=== PATIENT | female | born 1995 | race Caucasian/White ===

== ENCOUNTER → 2018-07-06 14:46 | Outpatient (CLI) | payer BC, SELFPAY ==
[2018-07-06 15:36] LABS: Basophils % 0.3 % (0.1-2.0); Eosinophils # 0.1 K/mm3 (0.0-0.4); Eosinophils % 0.9 % (0.1-12.0); Hematocrit 39.3 % (37.0-47.0); Hemoglobin 13.3 g/dL (12.2-16.2); Lymphocytes # 1.9 K/mm3 (0.7-4.5); Lymphocytes % 25.3 % (10-50); Mean Corpuscular HGB Conc 33.7 g/dL (31.8-35.4); Mean Corpuscular Hemoglobin 28.6 pg (27.0-31.2); Mean Platelet Volume 7.1 fl (7.4-10.4); Monocytes # 0.4 K/mm3 (0.1-1.0); Monocytes % 5.4 % (1.7-9.3); Neutrophils # 5.2 K/mm3 (1.8-7.8); Platelet Count 279 K/mm3 (142-424); Red Blood Count 4.63 M/mm3 (4.20-5.40); Red Cell Distribution Width 13.2 % (11.5-17.5); White Blood Count 7.7 K/mm3 (4.8-10.8)
[2018-07-09 03:43] LABS: HIV Screen 4th Generation wRfx Non Reactive (Non Reactive); Rapid Plasma Reagin Ab Titer Non Reactive (NonRea<1:1); Rubella Antibodies, IgG 2.59 index (Immune >0.99)
[2018-07-09 03:44] LABS: Hepatitis B Surface Antigen Negative (Negative); Hepatitis C Antibody <0.1 s/co ratio (0.0-0.9)
== END ==
PROVIDERS: Visit Provider Nurse Practitioner Obstetrics & Gynecology
DX: Z34.90 Encounter for supervision of normal pregnancy, unspecified, unspecified trimester (principal)
CPT/HCPCS: 36415; 85025; 86592; 86703; 86762; 86850; 87340; 87380; G0432

== ENCOUNTER → 2018-07-15 10:28 | Outpatient (CLI) | payer BC, SELFPAY ==
--- NOTE | 2018-07-15 10:30 | US_ITS ---
US OB transvaginal HISTORY: ITS.REASON: US OB Dates ORDERING PHYSICIAN: Germán Robles MD PATIENT AGE: 22 years COMPARISON: None FINDINGS: An intrauterine gestational sac is present with a pole with a crown-rump length of 2.46cm correlating to gestational age of 9 weeks 2 days. heart tones are present with an FHR of 186 bpm's. Yolk sac is noted. Adnexa: Unremarkable. IMPRESSION: Live intrauterine gestation at 9 weeks 2 days as described above. Estimated due date by Ultrasound is 02/15/2019
== END ==
PROVIDERS: PCP Nurse Practitioner Obstetrics & Gynecology; Visit Provider Nurse Practitioner Obstetrics & Gynecology
DX: O26.841 Uterine size-date discrepancy, first trimester (principal)
CPT/HCPCS: 76817

== ENCOUNTER 2018-12-03 08:10 | Outpatient (CLI) | payer BC, SELFPAY ==
[2018-12-03 08:23] VITALS: BMI 27.3
[2018-12-03 08:50] LABS: Appearance,Urine CLOUDY (Clear); Bilirubin,Urine Negative (Negative); Blood, Urine Negative (Negative); Color,Urine YELLOW (Yellow); Glucose,Urine (UA) Negative (Negative); Ketones,Urine Negative (Negative); Leukocyte Esterase,Urine 2+ (Negative); Microscopic, Urine URINE MICROSCOPIC (MICROSCOPIC); Nitrate,Urine Negative (Negative); PH,Urine 7.5 (5.0-8.5); Protein,Urine Negative (Negative); Urobilinogen,Urine 0.2 EU/dl (0.2)
[2018-12-03 08:56] LABS: Bacteria,Urine 3+ /lpf; Squamous Epithelial Cell,Urine 20-50 #/hpf (0-5)
[2018-12-03 09:00] LABS: Fetal Membrane Rupture (Rapid) Negative (Negative)
[2018-12-03 09:01] LABS: Amphetamine/Metha Screen,Urine Negative ng/mL (<1000); Barbiturates Screen,Urine Negative ng/mL (<200); Benzodiazepines Screen,Urine Negative ng/mL (<200); Cannabinoid Screen,Urine Positive ng/mL (<50); Cocaine Screen,Urine Negative ng/mL (<300); Methadone Screen,Urine Negative ng/mL (<300); Opiate Screen,Urine Negative ng/mL (<300); Phencyclidine Screen,Urine Negative ng/mL (<25)
[2018-12-03 10:06] VITALS: BP 123/79; PULSE 91; RESP 18; TEMP 36.9; O2SAT 95; BMI 27.3
== END 2018-12-03 09:10 | disposition home or self-care (01) ==
LOC: OBOUT 08:13 → OB 08:15
PROVIDERS: Visit Provider Nurse Practitioner Obstetrics & Gynecology
DX: O21.2 Late vomiting of pregnancy (principal); Z3A.29 29 weeks gestation of pregnancy
CPT/HCPCS: 59025; 80305; 81001; 84112; 87086

== ENCOUNTER 2019-01-11 22:24 | Observation (INO) ==
[2019-01-11 23:48] LABS: Basophils % 0.3 % (0.1-2.0); Eosinophils % 0.3 % (0.1-12.0); Hemoglobin 12.9 g/dL (12.2-16.2); Lymphocytes # 2.3 K/mm3 (0.7-4.5); Lymphocytes % 17.8 % (10-50); Mean Corpuscular HGB Conc 32.2 g/dL (31.8-35.4); Mean Platelet Volume 7.5 fl (7.4-10.4); Monocytes # 0.9 K/mm3 (0.1-1.0); Monocytes % 6.7 % (1.7-9.3); Neutrophils # 9.7 K/mm3 (1.8-7.8); Neutrophils % 74.9 % (37.0-80.0); Platelet Count 427 K/mm3 (142-424); Red Blood Count 4.71 M/mm3 (4.20-5.40); Red Cell Distribution Width 13.6 % (11.5-17.5); White Blood Count 12.9 K/mm3 (4.8-10.8)
[2019-01-12 00:01] LABS: Activated Partial Thrombo Time 25.6 seconds (23.6-34.0); INR 0.96 (0.9-1.1)
[2019-01-12 00:02] LABS: Anion Gap 19.5 mEq/L (5-15); Calcium 9.6 mg/dL (8.5-10.1)
--- NOTE | 2019-01-12 01:00 | History & Physical Report ---
OB - H&P: HPI Antepartum - History of Present Illness Chief complaint: Nausea and vomiting, abdominal pain History of present illness: She is a 23-year-old 5 para 0 aborta 4 who is 35 weeks gestational age. We did an early ultrasound here that confirmed her dates. She subsequently tr ansferred to [facility] and is now transferring back here she says she arrived here in labor and delivery with abdominal pain and nausea and vomiting. She says she has been vomiting for about a month. She does admit to mild headache. On arrival her blood pressure was elevated in the 160/100 range it is now 132/82. She has received a liter of of fluid. Nonstress test is reactive. Her liver function tests are elevated in the 500 range. Her platelets are normal. Her potassium is low at 2.5. She denies hepatitis and she did have hepatitis screening few weeks ago that were negative. He was seen a few weeks ago they felt that she had gallbladder disease. She had been scheduled for a gallbladder ultrasound but did not show up for this. We will make arrangements for this in the morning. - History of Present Criteria for establishing EDC:: LMP confirmed by 1st trimester US care: limited care Ultrasounds: normal 1st trimester US Obstetrical complications: other 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 Para: 0 Review of Systems - Review of Systems Review of systems:: pertinent systems reviewed and negative unless documented below Meds Home Medications Medication Instructions Recorded Confirmed Type Mv-Mn/Iron/FA/Herbal/Digestive 1 tab PO DAILY 01/11/19 01/11/19 History [ One Tablet] Allergies Allergy/AdvReac Type Severity Reaction Status Date / Time Sulfa (Sulfonamide Allergy Unknown Verified 07/06/18 13:36 Antibiotics) [SULFA (SULFONAMIDE ANTIBIOTICS)] OB - H&P: Exam - Physical Exam Vital signs: Temp Pulse Resp BP Pulse Ox 98.5 F 102 H 16 137/96 H 98 01/11/19 23:08 01/11/19 23:08 01/11/19 23:08 01/11/19 23:08 01/11/19 23:08 - Constitutional no acute distress - Routine HEENT Exam Head: Present: normocephalic Eye: Present: EOMI, PERRL ENT: Present: mucous membranes moist - Routine Neck Exam Present: supple, full ROM - Routine Respiratory Exam Absent: accessory muscle use (good air entry bilaterally), respiratory distress, wheezes, crackles - Routine Cardiovascular Exam Present: RRR. Absent: murmur - Routine Abdominal Exam Present: soft, normoactive bowel sounds. Absent: tenderness, distended, guarding - Routine Rectal Exam Patient deferred: visual exam, digital exam - Routine Exam Patient deferred: external exam, groin exam, perineal exam - Routine Extremities Exam Present: full ROM. Absent: cyanosis, edema - Routine Skin Exam Present: intact. Absent: cyanosis - Routine Neurological Exam Present: alert, oriented X3 - Routine Psychiatric Exam Present: normal affect OB - Results - Labs Labs: Short CBC 01/11/19 Range/Units 23:05 WBC 12.9 H (4.8-10.8) K/mm3 Hgb 12.9 (12.2-16.2) g/dL Hct 40.0 (37.0-47.0) % Plt Count 427 H (142-424) K/mm3 BMP 01/11/19 23:05 Sodium 139 Potassium 2.5 L* Chloride 97 L Carbon Dioxide 25 BUN 7 Creatinine 0.79 Glucose 72 L Calcium 9.6 Liver Function 01/11/19 Range/Units 23:05 AST 568 H* (15-37) U/L ALT 415 H* (12-78) U/L OB - A/P Antepartum (1) Gallbladder disease affecting Current visit: Yes Status: Acute (2) False labor before 37 completed weeks of gestation in third trimester Current visit: Yes Status: Acute (3) Elevated liver function tests Current visit: Yes Status: Acute - Additional Plan Planning to breastfeed?: No Plan: other Additional Information:: She has elevated liver enzymes possibly consistent with gallbladder disease. Her platelets are normal. Her blood pressure has normalized now that she is relaxed in bed. We will plan to give her some pain medicine overnight. We will get an ultrasound in the morning. I did an ultrasound at the bedside and fluid was adequate. Baby was active. Heart rate was normal. Her nonstress test is reactive at this point in time. She did have one episode of prolonged decelerations lasted about 3 minutes. This is now improved. We will continue with antiemetics overnight. I will give her some pain medicine as well since she does complain of lower abdominal pain. She has more uterine irritability than contractions. I examined her cervix and she was 2 cm 50% Station -2. We will repeat all her blood work again in the morning.
[2019-01-12 01:08] LABS: Microscopic, Urine URINE MICROSCOPIC (MICROSCOPIC)
[2019-01-12 01:09] LABS: Appearance,Urine CLEAR (Clear); Blood, Urine Negative (Negative); Color,Urine YELLOW (Yellow); Glucose,Urine (UA) Negative (Negative); Ketones,Urine 3+ (Negative); Leukocyte Esterase,Urine 2+ (Negative); PH,Urine 6.5 (5.0-8.5); Protein,Urine Negative (Negative); Urobilinogen,Urine 0.2 EU/dl (0.2)
[2019-01-12 01:15] LABS: Bilirubin,Urine Negative (Negative)
[2019-01-12 01:17] LABS: Amorphous Sediment,Urine 1+ /lpf; Bacteria,Urine 1+ /lpf; Mucus,Urine 1+ /lpf
[2019-01-12 01:18] LABS: Amphetamine/Metha Screen,Urine Negative ng/mL (<1000); Barbiturates Screen,Urine Negative ng/mL (<200); Benzodiazepines Screen,Urine Negative ng/mL (<200); Cannabinoid Screen,Urine Positive ng/mL (<50); Cocaine Screen,Urine Negative ng/mL (<300); Methadone Screen,Urine Negative ng/mL (<300); Opiate Screen,Urine Negative ng/mL (<300); Phencyclidine Screen,Urine Negative ng/mL (<25)
[2019-01-12 08:04] LABS: Basophils % 0.3 % (0.1-2.0); Eosinophils % 0.3 % (0.1-12.0); Hematocrit 31.2 % (37.0-47.0); Lymphocytes # 2.3 K/mm3 (0.7-4.5); Lymphocytes % 22.3 % (10-50); Mean Corpuscular HGB Conc 32.1 g/dL (31.8-35.4); Mean Corpuscular Volume 85.3 fl (81-99); Mean Platelet Volume 7.4 fl (7.4-10.4); Monocytes # 0.7 K/mm3 (0.1-1.0); Monocytes % 7.1 % (1.7-9.3); Neutrophils # 7.1 K/mm3 (1.8-7.8); Platelet Count 313 K/mm3 (142-424); Red Blood Count 3.66 M/mm3 (4.20-5.40); Red Cell Distribution Width 13.7 % (11.5-17.5); White Blood Count 10.1 K/mm3 (4.8-10.8)
[2019-01-12 08:16] LABS: Hemoglobin 10.1 g/dL (12.2-16.2)
[2019-01-12 08:31] LABS: Activated Partial Thrombo Time 26.2 seconds (23.6-34.0); INR 1.04 (0.9-1.1); Prothrombin Time 10.8 seconds (9.4-11.8)
[2019-01-12 08:39] LABS: Albumin Level 2.4 gm/dL (3.4-5.0); Albumin/Globulin Ratio 0.7 (1.1-1.8); Anion Gap 15.2 mEq/L (5-15); Globulin 3.6 gm/dl (1.3-3.2); Uric Acid 6.8 mg/dL (2.6-7.2)
--- NOTE | 2019-01-12 08:55 | Progress Note ---
Internal Medicine - PN: Subj *Date: 01/12/19 *Time: 08:52 Interval history: She is doing a little better this morning. She says that her pain is improved. Her liver function tests have improved. Her electrolytes are normal. Her lipase and amylase are both normal as well. Her platelets have come down from 400-3 13. We have an ultrasound planned for this morning to look at her gallbladder as well as the baby. Her nonstress test is reactive and there are no contractions this morning. Exam Vital signs and Labs for Last 24 Hours: Temp Pulse Resp BP Pulse Ox 97.7 F 72 18 110/59 L 100 01/12/19 08:00 01/12/19 08:00 01/12/19 08:00 01/12/19 08:00 01/12/19 08:00 Laboratory Results - last 24 hr 01/11/19 22:49: Membrane Rupture Negative 01/11/19 23:05: WBC 12.9 H, RBC 4.71, Hgb 12.9, Hct 40.0, MCV 85.0, MCH 27.4, MCHC 32.2, RDW 13.6, Plt Count 427 H, MPV 7.5, Neut % (Auto) 74.9, Lymph % (Auto) 17.8, [place] % (Auto) 6.7, Eos % (Auto) 0.3, Baso % (Auto) 0.3, Neut # (Auto) 9.7 H, Lymph # (Auto) 2.3, [place] # (Auto) 0.9, Eos # (Auto) 0.0, Baso # (Auto) 0.0 01/11/19 23:05: PT 10.0, INR 0.96, APTT 25.6, Fibrinogen 500, D-Dimer 1120 H* 01/11/19 23:05: Sodium 139, Potassium 2.5 L*, Chloride 97 L, Carbon Dioxide 25, Anion Gap 19.5 H, BUN 7, Creatinine 0.79, Estimated Creat Clear 110, Estimated GFR 90, Est GFR ( Amer) 109, Glucose 72 L, Uric Acid 7.0, Calcium 9.6, AST 568 H*, ALT 415 H* 01/12/19 00:00: Magnesium 1.6 01/12/19 00:59: Urine Color Yellow, Urine Appearance Clear, Urine pH 6.5, Ur Specific [place] 1.010, Urine Protein Negative, Urine Glucose (UA) Negative, Urine Ketones 3+, Urine Blood Negative, Urine Nitrate Negative, Urine Bilirubin Negative, Urine Urobilinogen 0.2, Ur Leukocyte Esterase 2+ A, Urine RBC 3-5, Urine WBC 10-20, Ur Squamous Epith Cells 5-10, Amorphous Sediment 1+, Urine Bacteria 1+, Urine Mucus 1+ 01/12/19 00:59: Urine Opiates Screen Negative, Urine Methadone Screen Negative, Ur Barbituates Screen Negative, Ur Phencyclidine Scrn Negative, Ur Amphetamines Screen Negative, U Benzodiazepines Scrn Negative, Urine Cocaine Screen Negative, U Marijuana (THC) Screen Positive H 01/12/19 06:18: PT 10.8, INR 1.04, APTT 26.2, D-Dimer 1100 H* 01/12/19 06:18: Sodium 142, Potassium 3.2 L D, Chloride 105, Carbon Dioxide 25, Anion Gap 15.2 H, BUN 6 L, Creatinine 0.71, Estimated Creat Clear 123, Estimated GFR 102, Est GFR ( Amer) 123, Glucose 75, Uric Acid 6.8, Calcium 8.0 L D, Total Bilirubin 1.0, AST 381 H* D, ALT 294 H D, Alkaline Phosphatase 154 H, Total Protein 6.0 L, Albumin 2.4 L, Globulin 3.6 H, Albumin/Globulin Ratio 0.7 L , Amylase 41, Lipase 82 01/12/19 06:18: WBC 10.1, RBC 3.66 L, Hgb 10.1 L D, Hct 31.2 L, MCV 85.3, MCH 27.4, MCHC 32.1, RDW 13.7, Plt Count 313 D, MPV 7.4, Neut % (Auto) 70.0, Lymph % (Auto) 22.3, [place] % (Auto) 7.1, Eos % (Auto) 0.3, Baso % (Auto) 0.3, Neut # (Auto) 7.1, Lymph # (Auto) 2.3, [place] # (Auto) 0.7, Eos # (Auto) 0.0, Baso # (Auto) 0.0 I & O for Last 24 hours: Intake & Output 01/09/19 01/10/19 01/11/19 01/12/19 11:59 11:59 11:59 11:59 Weight 139 lb - Constitutional no acute distress Assessment and Plan (1) Gallbladder disease affecting Current visit: Yes Status: Acute Category: Medical Code(s): O26.619 - Liver and biliary tract disorders in , unspecified trimester; K82.9 - Disease of gallbladder, unspecified (2) False labor before 37 completed weeks of gestation in third trimester Current visit: Yes Status: Acute Category: Medical Code(s): O47.03 - False labor before 37 completed weeks of gestation, third trimester (3) Elevated liver function tests Current visit: Yes Status: Acute Category: Medical Code(s): R94.5 - Abnormal results of liver function studies (4) Hypokalemia Current visit: Yes Status: Acute Category: Medical Code(s): E87.6 - Hypokalemia (5) Hyperemesis gravidarum Current visit: Yes Status: Acute Category: Medical Code(s): O21.0 - Mild hyperemesis gravidarum (6) Dehydration Current visit: Yes Status: Acute Category: Medical Code(s): E86.0 - Dehydration - Assessment and plan all Dx Assessment and Plan for all problems:: We have an ultrasound scheduled for her this morning. We will continue with close observation. We will plan to continue with her potassium for now since she was hypokalemic. We will have her see 1 of our surgeons after we get the results of her ultrasound. We will likely plan to keep her at least until tomorrow to stabilize.
[2019-01-13 06:23] LABS: Hepatitis B Surface Antigen Negative (Negative)
[2019-01-13 08:11] VITALS: BP 109/72
[2019-01-13 08:31] LABS: Basophils % 0.3 % (0.1-2.0); Eosinophils # 0.1 K/mm3 (0.0-0.4); Eosinophils % 2.1 % (0.1-12.0); Hematocrit 28.4 % (37.0-47.0); Lymphocytes # 2.2 K/mm3 (0.7-4.5); Lymphocytes % 33.5 % (10-50); Mean Corpuscular HGB Conc 31.8 g/dL (31.8-35.4); Mean Platelet Volume 8.3 fl (7.4-10.4); Monocytes # 0.5 K/mm3 (0.1-1.0); Monocytes % 7.9 % (1.7-9.3); Neutrophils # 3.7 K/mm3 (1.8-7.8); Neutrophils % 56.2 % (37.0-80.0); Platelet Count 260 K/mm3 (142-424); Red Blood Count 3.26 M/mm3 (4.20-5.40); Red Cell Distribution Width 14.1 % (11.5-17.5); White Blood Count 6.6 K/mm3 (4.8-10.8)
[2019-01-13 08:49] LABS: Albumin Level 1.9 gm/dL (3.4-5.0); Albumin/Globulin Ratio 0.5 (1.1-1.8); Anion Gap 13.1 mEq/L (5-15); Bilirubin,Total 0.5 mg/dL (0.2-1.0); Calcium 7.4 mg/dL (8.5-10.1); Globulin 3.6 gm/dl (1.3-3.2); Total Protein,Serum 5.5 gm/dL (6.4-8.2)
--- NOTE | 2019-01-13 09:21 | Progress Note ---
Internal Medicine - PN: Subj *Date: 01/13/19 *Time: :19 Interval history: She is doing better today. She has been eating and drinking and ambulating. She has had some nausea but no episodes of emesis. She said she felt a little nauseous after her last meal. We have been giving her Zofran. Blood work yesterday had improved. I have repeated her blood work again this morning. We will also try some Vistaril to see if this helps with her sleeping and anxiety. We will start her on some oral pain medicine for her cholecystitis. We will plan to send her home today. Exam Vital signs and Labs for Last 24 Hours: Temp Pulse Resp BP Pulse Ox 97.9 F 78 18 109/72 L 100 01/13/19 08:00 01/13/19 08:00 01/13/19 08:00 01/13/19 08:00 01/13/19 08:00 Laboratory Results - last 24 hr 01/12/19 06:18: Hep Bs Antigen Negative 01/13/19 08:25: WBC 6.6 D, RBC 3.26 L, Hgb 9.0 L, Hct 28.4 L, MCV 87.0, MCH 27. 6, MCHC 31.8, RDW 14.1, Plt Count 260, MPV 8.3, Neut % (Auto) 56.2, Lymph % (Auto) 33.5, [place] % (Auto) 7.9, Eos % (Auto) 2.1, Baso % (Auto) 0.3, Neut # (Auto) 3.7, Lymph # (Auto) 2.2, [place] # (Auto) 0.5, Eos # (Auto) 0.1, Baso # (Auto) 0.0 01/13/19 08:25: Sodium 143, Potassium 3.1 L, Chloride 111 H, Carbon Dioxide 22, Anion Gap 13.1, BUN 2 L D, Creatinine 0.64, Estimated Creat Clear 136, Estimated GFR 115, Est GFR ( Amer) 139, Glucose 81, Calcium 7.4 L, Total Bilirubin 0.5, AST 237 H D, ALT 221 H, Alkaline Phosphatase 132 H, Total Protein 5.5 L, Albumin 1.9 L D, Globulin 3.6 H, Albumin/Globulin Ratio 0.5 L I & O for Last 24 hours: Intake & Output 01/10/19 01/11/19 01/12/19 01/13/19 11:59 11:59 11:59 11:59 Weight 139 lb Microbiology Reports for the Last 24 Hours: Microbiology 01/12/19 00:59 Urine,Clean Catch Urine Culture - Final Multiple organisms, suggests contamination. - Constitutional no acute distress Assessment and Plan (1) Gallbladder disease affecting Current visit: Yes Status: Acute Category: Medical Code(s): O26.619 - Liver and biliary tract disorders in , unspecified trimester; K82.9 - Disease of gallbladder, unspecified (2) False labor before 37 completed weeks of gestation in third trimester Current visit: Yes Status: Acute Category: Medical Code(s): O47.03 - False labor before 37 completed weeks of gestation, third trimester (3) Elevated liver function tests Current visit: Yes Status: Acute Category: Medical Code(s): R94.5 - Abnormal results of liver function studies (4) Hypokalemia Current visit: Yes Status: Acute Category: Medical Code(s): E87.6 - Hypokalemia (5) Hyperemesis gravidarum Current visit: Yes Status: Acute Category: Medical Code(s): O21.0 - Mild hyperemesis gravidarum (6) Dehydration Current visit: Yes Status: Acute Category: Medical Code(s): E86.0 - Dehydration - Assessment and plan all Dx Assessment and Plan for all problems:: She is doing better today. She is taking some pain medicine overnight. We will change her to an oral pain medicine. We will repeat her blood work this morning and we are awaiting these results. We will plan to send her home today to follow-up with me next week.
--- NOTE | 2019-01-13 09:43 | Discharge Summary ---
General - General Admission date:: 01/12/19 Discharge date: 01/13/19 HPI HPI: She is a 23-year-old 5 aborta 4 who was 35 weeks gestational age. She says she has been having care in [facility]. They did not seem to have any records for her except for a triage visit when she was seen about 4 weeks ago for gallbladder pain. She came into the hospital here with severe abdominal pain and occasional contractions. She was dehydrated and hypokalemic. She had been nauseated and had been vomiting profusely she says for about a month. As result of this we elected to admit her for further care. Hospital Course Hospital Course: She was started on IV fluids and we have given her IV Stadol for pain. This seems to have helped. She had an ultrasound that showed a normal size fetus with good biophysical profile and fluid. The growth was average. She had an ultrasound of her gallbladder that showed multiple gallstones as well as sludge in the gallbladder. The gallbladder wall was slightly thickened as well. She initially had elevated liver function tests and these have now gone down. Her white blood cell count was initially 12 and is now 6. Her bilirubin has been normal. Her amylase and lipase were normal as well. We will plan to send her home today with Vistaril and Tylenol 3 for pain. The Vistaril is for sleep. We will also give her a prescription for Zofran to take 4 mg every 4 hours as needed for nausea and vomiting. We will follow-up with her again in a few days in my office. Her cervix on admission was 2 cm 50% Station -3. We will plan to deliver her by 39 weeks. We will have her see a general surgeon for a cholecystectomy after delivery. Her condition on discharge is stable and improved. We have instructed her about the type of food she should eating. I told her she should be eating fat-free foods. Her pain is improved with the IV pain medicine. Her hypokalemia has improved as well. She is no longer vomiting. Rhogam Administration: Not Indicated Objective Vital signs: Temp Pulse Resp BP Pulse Ox 97.9 F 78 18 109/72 L 100 01/13/19 08:00 01/13/19 08:00 01/13/19 08:00 01/13/19 08:00 01/13/19 08:00 no acute distress Results Labs on day of discharge: Labs from last 24 hours 01/13/19 01/13/19 01/12/19 08:25 08:25 06:18 WBC 6.6 D RBC 3.26 L Hgb 9.0 L Hct 28.4 L MCV 87.0 MCH 27.6 MCHC 31.8 RDW 14.1 Plt Count 260 MPV 8.3 Neut % (Auto) 56.2 Lymph % (Auto) 33.5 [place] % (Auto) 7.9 Eos % (Auto) 2.1 Baso % (Auto) 0.3 Neut # (Auto) 3.7 Lymph # (Auto) 2.2 [place] # (Auto) 0.5 Eos # (Auto) 0.1 Baso # (Auto) 0.0 Sodium 143 Potassium 3.1 L Chloride 111 H Carbon Dioxide 22 Anion Gap 13.1 BUN 2 L D Creatinine 0.64 Estimated Creat Clear 136 Estimated GFR 115 Est GFR ( Amer) 139 Glucose 81 Calcium 7.4 L Total Bilirubin 0.5 AST 237 H D ALT 221 H Alkaline Phosphatase 132 H Total Protein 5.5 L Albumin 1.9 L D Globulin 3.6 H Albumin/Globulin Ratio 0.5 L Hep Bs Antigen Negative DS: Diagnosis - Discharge Diagnosis (1) Gallbladder disease affecting Status: Acute (2) False labor before 37 completed weeks of gestation in third trimester Status: Acute (3) Elevated liver function tests Status: Acute (4) Hypokalemia Status: Acute (5) Hyperemesis gravidarum Status: Acute (6) Dehydration Status: Acute (7) Gallstones and inflammation of gallbladder without obstruction Status: Acute (8) Right upper quadrant pain Status: Acute Discharge Plan - Patient Discharge Instructions ACTIVITY: No heavy lifting DIET: low fat, low cholesterol - Follow up Plan Disposition: Home, Self-Correction Medications: Home Medications Medication Instructions Recorded Confirmed Type Mv-Mn/Iron/FA/Herbal/Digestive 1 tab PO DAILY 01/11/19 01/11/19 History [ One Tablet] Acetaminophen with Codeine 1 - 2 tab PO Q4HP PRN #30 tab 01/13/19 Rx [Tylenol with Codeine #3 tablet] Ondansetron [Zofran 4mg ODT] 4 mg PO Q4HP PRN #30 tab.rapdis 01/13/19 Rx hydrOXYzine pamoate [Vistaril 25mg 25 mg PO Q6H PRN #60 cap 01/13/19 Rx capsule] Prescriptions/Medication Reconciliation: New hydrOXYzine pamoate [Vistaril 25mg capsule] 25 mg PO Q6H PRN #60 cap PRN Reason: Sleep Ondansetron [Zofran 4mg ODT] 4 mg PO Q4HP PRN #30 tab.rapdis PRN Reason: Nausea And Vomiting Acetaminophen with Codeine [Tylenol with Codeine #3 tablet] 1 - 2 tab PO Q4HP PRN #30 tab PRN Reason: Moderate To Severe Pain Continued Mv-Mn/Iron/FA/Herbal/Digestive [ One Tablet] 1 tab PO DAILY - Problem Reconciliation Problems Reviewed?: Yes
[2019-01-13 16:53] LABS: Rapid Plasma Reagin Ab Titer Non Reactive (NonRea<1:1)
[2019-01-13 16:54] LABS: HIV Screen 4th Generation wRfx Non Reactive (Non Reactive)
== END 2019-01-13 12:24 | disposition home or self-care (01) ==
LOC: OBOUT 22:24 → OB 22:28 → INTOOBSV 01-12 00:19 → OB 01-12 00:19
PROVIDERS: ADMIT Nurse Practitioner Obstetrics & Gynecology; ATTEND Nurse Practitioner Obstetrics & Gynecology
CPT/HCPCS: 36415; 59025; 76705; 76819; 80048; 80053; 80305; 81001; 82150; 83690; 83735; 84112; 84450; 84460; 84550; 85025; 85378; 85384; 85610; 85730; 86592; 86762; 87086; 87340; 96360; G0378; J0595; J2405

== ENCOUNTER → 2019-01-19 17:19 | Outpatient (CLI) | payer BC, SELFPAY | PROVIDERS: Visit Provider Nurse Practitioner Obstetrics & Gynecology | DX: Z34.90 Encounter for supervision of normal pregnancy, unspecified, unspecified trimester (principal) | CPT/HCPCS: 86403 ==

== ENCOUNTER 2019-01-19 21:03 | Outpatient (CLI) | payer BC, SELFPAY ==
[2019-01-19 21:16] VITALS: BP 131/80; PULSE 72; RESP 18; TEMP 36.8; O2SAT 98; BMI 27.7
[2019-01-19 21:33] LABS: Microscopic, Urine URINE MICROSCOPIC (MICROSCOPIC)
[2019-01-19 21:38] LABS: Appearance,Urine CLEAR (Clear); Blood, Urine Negative (Negative); Color,Urine YELLOW (Yellow); Glucose,Urine (UA) Negative (Negative); Ketones,Urine Negative (Negative); Leukocyte Esterase,Urine 2+ (Negative); Nitrate,Urine Negative (Negative); PH,Urine 7.5 (5.0-8.5); Protein,Urine TRACE (Negative); Specific Gravity, Urine 1.015 (1.005-1.030); Urobilinogen,Urine 0.2 EU/dl (0.2)
[2019-01-19 21:42] LABS: Bilirubin,Urine Negative (Negative)
[2019-01-19 21:53] LABS: Amorphous Sediment,Urine 1+ /lpf; Amphetamine/Metha Screen,Urine Negative ng/mL (<1000); Bacteria,Urine 2+ /lpf; Barbiturates Screen,Urine Negative ng/mL (<200); Benzodiazepines Screen,Urine Negative ng/mL (<200); Cannabinoid Screen,Urine Positive ng/mL (<50); Cocaine Screen,Urine Negative ng/mL (<300); Methadone Screen,Urine Negative ng/mL (<300); Mucus,Urine 1+ /lpf; Opiate Screen,Urine Positive ng/mL (<300); Phencyclidine Screen,Urine Negative ng/mL (<25)
--- NOTE | 2019-01-20 00:06 | PC.NURSE ---
Discharge paper work signed. Pt. waiting for ride to arrive.
--- NOTE | 2019-01-20 03:42 | PC.NURSE ---
Pt. left unit at this time as ride has arrived.
== END 2019-01-20 03:40 | disposition home or self-care (01) ==
LOC: OBOUT 21:06 → OB 21:06
PROVIDERS: PCP Nurse Practitioner Obstetrics & Gynecology; Visit Provider Obstetrics & Gynecology
DX: O47.03 False labor before 37 completed weeks of gestation, third trimester (principal); Z3A.36 36 weeks gestation of pregnancy
CPT/HCPCS: 59025; 80305; 81001; 87086; 96360; 96372

== ENCOUNTER 2019-01-25 22:32 | Outpatient (CLI) | payer BC, SELFPAY ==
[2019-01-25 22:47] VITALS: BP 122/70; PULSE 114; RESP 16; TEMP 37.1; O2SAT 96; BMI 26.7
[2019-01-25 23:11] LABS: Microscopic, Urine URINE MICROSCOPIC (MICROSCOPIC)
[2019-01-25 23:20] LABS: Appearance,Urine CLEAR (Clear); Blood, Urine Negative (Negative); Color,Urine YELLOW (Yellow); Glucose,Urine (UA) Negative (Negative); Ketones,Urine Negative (Negative); Leukocyte Esterase,Urine 3+ (Negative); Nitrate,Urine Negative (Negative); Protein,Urine TRACE (Negative)
[2019-01-25 23:25] LABS: Bilirubin,Urine Negative (Negative)
[2019-01-25 23:27] LABS: Amphetamine/Metha Screen,Urine Negative ng/mL (<1000); Barbiturates Screen,Urine Negative ng/mL (<200); Benzodiazepines Screen,Urine Negative ng/mL (<200); Cannabinoid Screen,Urine Positive ng/mL (<50); Cocaine Screen,Urine Negative ng/mL (<300); Methadone Screen,Urine Negative ng/mL (<300); Opiate Screen,Urine Positive ng/mL (<300); Phencyclidine Screen,Urine Negative ng/mL (<25)
[2019-01-25 23:38] LABS: Bacteria,Urine Trace /lpf
== END 2019-01-26 07:14 | disposition home or self-care (01) ==
LOC: OBOUT 22:36 → OB 22:37
PROVIDERS: PCP Nurse Practitioner Obstetrics & Gynecology; Visit Provider Obstetrics & Gynecology
DX: O60.03 Preterm labor without delivery, third trimester (principal); Z3A.37 37 weeks gestation of pregnancy
CPT/HCPCS: 59025; 80305; 81001; 87086

== ENCOUNTER 2019-01-31 05:14 | Inpatient (IN) ==
[2019-01-31 06:13] LABS: Microscopic, Urine URINE MICROSCOPIC (MICROSCOPIC)
[2019-01-31 06:19] LABS: Appearance,Urine CLEAR (Clear); Bilirubin,Urine Negative (Negative); Blood, Urine Negative (Negative); Color,Urine YELLOW (Yellow); Glucose,Urine (UA) Negative (Negative); Ketones,Urine Negative (Negative); Leukocyte Esterase,Urine 2+ (Negative); Protein,Urine Negative (Negative); Urobilinogen,Urine 0.2 EU/dl (0.2)
[2019-01-31 06:25] LABS: Basophils % 0.4 % (0.1-2.0); Eosinophils # 0.2 K/mm3 (0.0-0.4); Eosinophils % 1.8 % (0.1-12.0); Hematocrit 32.5 % (37.0-47.0); Hemoglobin 10.1 g/dL (12.2-16.2); Lymphocytes # 3.2 K/mm3 (0.7-4.5); Lymphocytes % 30.5 % (10-50); Mean Corpuscular Volume 84.5 fl (81-99); Mean Platelet Volume 8.2 fl (7.4-10.4); Monocytes # 0.6 K/mm3 (0.1-1.0); Neutrophils # 6.5 K/mm3 (1.8-7.8); Neutrophils % 61.4 % (37.0-80.0); Platelet Count 310 K/mm3 (142-424); Red Blood Count 3.84 M/mm3 (4.20-5.40); White Blood Count 10.5 K/mm3 (4.8-10.8)
[2019-01-31 06:36] LABS: Bacteria,Urine Trace /lpf
[2019-01-31 06:38] LABS: Amphetamine/Metha Screen,Urine Negative ng/mL (<1000); Barbiturates Screen,Urine Negative ng/mL (<200); Benzodiazepines Screen,Urine Negative ng/mL (<200); Cannabinoid Screen,Urine Positive ng/mL (<50); Cocaine Screen,Urine Negative ng/mL (<300); Methadone Screen,Urine Negative ng/mL (<300); Opiate Screen,Urine Positive ng/mL (<300); Phencyclidine Screen,Urine Negative ng/mL (<25)
--- NOTE | 2019-01-31 08:24 | History & Physical Report ---
OB - H&P: HPI Antepartum - History of Present Illness Chief complaint: Severe gallbladder disease and abdominal pain, nausea and vomiting History of present illness: She is a 23-year-old 4 para 0 aborta 3 who is 37+6 weeks gestational age. She has had a history of gallbladder disease throughout the and has had severe pain. She has been taking narcotics for her pain. As result of this we have elected to induce her labor at term. - History of Present Criteria for establishing EDC:: LMP confirmed by 2nd trimester US care: limited care Ultrasounds: normal mid trimester US Obstetrical complications: none Medical complications: other Narrative: She has severe right upper quadrant pain, nausea vomiting. She is been admitted for dehydration. An ultrasound confirmed that she had multiple gallstones within her gallbladder. She has been taking narcotics recently for the pain - Labs Blood type: O (+) positive Rubella: immune RPR/VDRL: nonreactive GBS status: negative HBsAG: negative [facility] History I have reviewed the patient's past medical history: Yes *Have you ever received a pneumonia vaccine?: No *Have you received a flu vaccine this season?: No Laterality Cases: Other Surgeries: Yes: Other. 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 Para: 0 Review of Systems - Review of Systems Review of systems:: pertinent systems reviewed and negative unless documented below Meds Home Medications Medication Instructions Recorded Confirmed Type Mv-Mn/Iron/FA/Herbal/Digestive 1 tab PO DAILY 01/11/19 01/31/19 History [ One Tablet] Acetaminophen with Codeine 1 - 2 tab PO Q4HP PRN #30 tab 01/13/19 01/31/19 Rx [Tylenol with Codeine #3 tablet] Ondansetron [Zofran 4mg ODT] 4 mg PO Q4HP PRN #30 tab.rapdis 01/13/19 01/31/19 Rx hydrOXYzine pamoate [Vistaril 25mg 25 mg PO Q6H PRN #60 cap 01/13/19 01/31/19 Rx capsule] promethazine 12.5 mg rectal 12.5 mg VA Q4-6H PRN #12 each 01/26/19 01/31/19 Rx suppository cephALEXin [Cephalexin 500mg Tab] 500 mg PO BID 01/31/19 01/31/19 History Allergies Allergy/AdvReac Type Severity Reaction Status Date / Time Sulfa (Sulfonamide Allergy Unknown Fever Verified 01/30/19 10:27 Antibiotics) [SULFA (SULFONAMIDE ANTIBIOTICS)] OB - H&P: Exam - Physical Exam Vital signs: Pulse Resp BP Pulse Ox 88 18 139/95 H 98 01/31/19 05:18 01/31/19 05:18 01/31/19 05:18 01/31/19 05:18 - Constitutional no acute distress - Routine HEENT Exam Head: Present: normocephalic Eye: Present: EOMI, PERRL ENT: Present: mucous membranes moist - Routine Neck Exam Present: supple, full ROM - Routine Respiratory Exam Absent: accessory muscle use (good air entry bilaterally), respiratory distress, wheezes, crackles - Routine Cardiovascular Exam Present: RRR. Absent: murmur - Routine Abdominal Exam Present: soft, normoactive bowel sounds. Absent: tenderness, distended, guarding - Routine Rectal Exam Patient deferred: visual exam, digital exam - Routine Exam Patient deferred: external exam, groin exam, perineal exam - Routine Extremities Exam Present: full ROM. Absent: cyanosis, edema - Routine Skin Exam Present: intact. Absent: cyanosis - Routine Neurological Exam Present: alert, oriented X3 - Routine Psychiatric Exam Present: normal affect OB - Results - Labs Labs: Short CBC 01/31/19 Range/Units 05:40 WBC 10.5 (4.8-10.8) K/mm3 Hgb 10.1 L (12.2-16.2) g/dL Hct 32.5 L (37.0-47.0) % Plt Count 310 (142-424) K/mm3 Urine 01/31/19 Range/Units 05:24 Urine Color Yellow (Yellow) Urine Appearance Clear (Clear) Urine pH 8.0 (5.0-8.5) Ur Specific [place] 1.010 (1.005-1.030) Urine Protein Negative (Negative) Urine Glucose (UA) Negative (Negative) OB - A/P Antepartum (1) Gallbladder disease affecting Current visit: No Status: Acute (2) Current visit: No Status: Acute - Additional Plan Planning to breastfeed?: No Plan: induction Additional Information:: We are inducing her labor at term since she has severe pain and requires narcotics for the pain.
--- NOTE | 2019-01-31 08:25 | Progress Note ---
Labor Note - Subjective: Date: 01/31/19 Time: 08:24 irregular contractions - Objective: NST:: Reactive Contractions:: every 4-5 minutes Cervical Dilation:: 3 Effacement:: 50% Station: -2 Membranes: artificially ruptured Comment:: Clear fluid - Fetus: Monitoring?: Yes monitoring type:: Internal and External Comment:: I inserted an IUPC - Assessment: Patient Problems: All Active Problems Gallbladder disease affecting (Acute) False labor before 37 completed weeks of gestation in third trimester (Acute) Elevated liver function tests (Acute) Hypokalemia (Acute) Hyperemesis gravidarum (Acute) Dehydration (Acute) Gallstones and inflammation of gallbladder without obstruction (Acute) Right upper quadrant pain (Acute) (Acute) - Plan: Anesthesia for epidural?: No Continue to labor down?: Yes Plan for ?: No Continue to monitor?: Yes Start pushing?: No
--- NOTE | 2019-01-31 09:29 | Progress Note ---
[facility] Anesthesia Checklist - Patient Identification Patient Identification: Arm Band, Verbal (Name & ) - Structural Data Admitted From: Inpatient Planned Operative Procedure/s: labor epidural Consent for Planned Operative Procedure(s) Verified: Yes Verified Documents: History and Physical - NPO Status Verified Time NPO: 00:00 - Additional verifications Patient : No Anesthesia Reactions: No Hx Blood Transfusions: No Blood Transfusion Reaction: No Cephalosporin Allergy: No Previous Colonoscopy: No - Cardiovascular Assessment Heart Sounds: S1 & S2 Pulse Strength: Baseline Pulse Rhythm: Regular Peripheral Edema: No - Airway Assessment C-Spine Mobility Assessed: Yes TMJ Mobility Assessed: Yes Dentition: Good Dentition - Neurological Assessment Level of Consciousness: Awake, Alert, Appropriate Hx Seizures: No Numbness or tingling in extremities: No - Anesthesia Plan Anesthesia Risk discussed: Yes Anesthesia Plan: Verified ASA Class: II Anesthesia Type: Epidural [facility] History I have reviewed the patient's past medical history: Yes *Have you ever received a pneumonia vaccine?: No *Have you received a flu vaccine this season?: No Anesthesia experience/problems:: none Laterality Cases: Other Surgeries: Yes: Other. 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
--- NOTE | 2019-01-31 11:00 | Progress Note ---
Labor Note - Subjective: Date: 01/31/19 Time: 11:00 regular contraction - Objective: NST:: Reactive Contractions:: every 2-3 minutes Cervical Dilation:: 4 Effacement:: 90% Station: -2 Membranes: artificially ruptured - Fetus: Monitoring?: Yes monitoring type:: Internal and External - Assessment: Labor progressing?: Yes Cephalopelvic disproportion?: No Patient Problems: All Active Problems Gallbladder disease affecting (Acute) False labor before 37 completed weeks of gestation in third trimester (Acute) Elevated liver function tests (Acute) Hypokalemia (Acute) Hyperemesis gravidarum (Acute) Dehydration (Acute) Gallstones and inflammation of gallbladder without obstruction (Acute) Right upper quadrant pain (Acute) (Acute) - Plan: Anesthesia for epidural?: Yes Continue to labor down?: Yes Plan for ?: No Continue to monitor?: Yes Start pushing?: No
--- NOTE | 2019-01-31 13:49 | Progress Note ---
Labor Note - Subjective: Date: 01/31/19 Time: 13:49 regular contraction - Objective: NST:: Reactive Contractions:: every 2-3 minutes Cervical Dilation:: 7-8 Effacement:: 100% Station: 0 Membranes: artificially ruptured - Fetus: Monitoring?: Yes monitoring type:: Internal - Assessment: Labor progressing?: Yes Cephalopelvic disproportion?: No Patient Problems: All Active Problems Gallbladder disease affecting (Acute) False labor before 37 completed weeks of gestation in third trimester (Acute) Elevated liver function tests (Acute) Hypokalemia (Acute) Hyperemesis gravidarum (Acute) Dehydration (Acute) Gallstones and inflammation of gallbladder without obstruction (Acute) Right upper quadrant pain (Acute) (Acute) - Plan: Anesthesia for epidural?: Yes Continue to labor down?: Yes Plan for ?: No Continue to monitor?: Yes Start pushing?: No
--- NOTE | 2019-01-31 14:42 | Procedure Note ---
- Delivery Note Delivery Date:: 01/31/19 Delivery Time:: 14:26 Anesthesia Type: Epidural Was labor medically induced?: Yes Induction method: per pitocin protocol Gestational age (weeks): 37 delivered prior to 39 weeks?: Yes Justification for early elective delivery:: Liver Disorder Infant Gender: Male at 1 minute: 8 at 5 minutes: 9 LAC or MLE?: LAC Delivery Procedure:: She is a 23-year-old 4 para 0 aborta 3 who was 37 and 6 weeks gestational age. She had severe gallbladder problems and was admitted earlier in the with elevated liver enzymes and severe pain, nausea vomiting and dehydration. Since then she has done a little better but continues to have severe right upper quadrant pain consistent with the gallstones that were diagnosed with ultrasound. As result of this we elected to induce her labor at term. She was started on IV oxytocin had her membranes ruptured. Under labor epidural she progressed to full dilation and delivered spontaneously a liveborn male child at 2:26 PM in the afternoon of January 31, 2019. On deliver the head it was noted that there was a nuchal cord. I elected to just deliver the rest of the infant's body atraumatically and then reduce the cord. The baby cried spontaneously and the oropharynx and nasopharynx were bulb suction. We allowed the cord to continue to pulsate for approximately 1 minute. The cord was then doubly clamped and cut. The was then placed on the mother's abdomen for further care. The nurses assigned Apgars of 8 at 1 minute and 9 at 5 minutes. We then obtained cord blood as well as cord pH. Using gentle traction on the cord and countertraction the fundus I was able to easily deliver the placenta intact. It had a normal three-vessel cord. She had a second-degree perineal laceration was repaired in the usual fashion with 3-0 Vicryl Rapide suture to the superficial tissues and 2-0 Vicryl suture to the deep tissues. She has O+ blood, she is rubella immune and was group B strep coccus negative. She plans to bottlefeed. Her estimate of blood loss was approximately 400 cc. Laceration:: vaginal Placental Delivery Description: Spontaneous
[2019-02-01 07:08] LABS: Hematocrit 31.3 % (37.0-47.0); Hemoglobin 9.5 g/dL (12.2-16.2)
--- NOTE | 2019-02-01 08:12 | Progress Note ---
Internal Medicine - PN: Subj *Date: 02/01/19 *Time: 08:11 Interval history: She continues to do well this morning. She is eating and drinking and ambulating. She is bottlefeeding. Her lochia is normal. Exam Vital signs and Labs for Last 24 Hours: Pulse Resp BP Pulse Ox 88 18 139/95 H 98 01/31/19 05:18 01/31/19 05:18 01/31/19 05:18 01/31/19 05:18 Laboratory Results - last 24 hr 01/31/19 14:37: Cord ABG pH 7.26 L 02/01/19 05:50: Hgb 9.5 L, Hct 31.3 L I & O for Last 24 hours: Intake & Output 01/29/19 01/30/19 01/31/19 02/01/19 11:59 11:59 11:59 11:59 Weight 142 lb Microbiology Reports for the Last 24 Hours: Microbiology 01/31/19 05:24 Urine,Clean Catch Urine Culture - Preliminary NO GROWTH AFTER 24 HOURS - Constitutional no acute distress Assessment and Plan (1) Gallbladder disease affecting Current visit: No Status: Acute Qualifiers: Trimester: third trimester Qualified Code(s): O26.613 - Liver and biliary tract disorders in , third trimester; K82.9 - Disease of gallbladder, unspecified Category: Medical Code(s): O26.619 - Liver and biliary tract disorders in , unspecified trimester; K82.9 - Disease of gallbladder, unspecified (2) Current visit: No Status: Acute Qualifiers: Weeks of gestation: 38 weeks Qualified Code(s): Z3A.38 - 38 weeks gestation of Category: Medical Code(s): Z34.90 - Encounter for supervision of normal , unspecified, unspecified trimester - Assessment and plan all Dx Assessment and Plan for all problems:: She continues to do very well. We will plan to send her home tomorrow.
--- OUTSIDE RECORDS SUMMARY | 2019-02-01 13:43 | External Medical Summary | Continuity of Care Document ---
:1995 Author Organization [facility] Address [address] [facility] [address] [place] [address] Phone Care Team Providers Name Role Phone Germán Robles Primary Care Provider Germán Robles Attending Provider [facility] Attending Provider La Cuenca Primary Care Provider La Cuenca Attending Provider Provider, Referral Primary Care Provider Unavailable Allergies, Adverse Reactions, Alerts Allergen Type Severity Reaction Last Updated Verified Status Sulfa (Sulfonamide Allergy Unknown Fever January 30, 2019 Yes Active Antibiotics) Medications Medication Status Dose Units Route Sig Qty Days Start Date End Ins tructions Date Promethazine Active 12.5 MG Rectal EVERY 04 February Hcl 4-6 2018 HOURS 11:42am Mv-Mn/Iron/Fa/H Active 1 TAB Oral Daily December erbal/Digestive 2018 10:59pm Ondansetron Active 4 MG Oral Every December hours 2018 as 9:48am needed Acetaminophen Active 1 - 2 TAB Oral Every December With Codeine hours 2018 as 9:50am needed Cephalexin Active 500 MG Oral Twice a January day 2018 5:44am Hydroxyzine Active 25 MG Oral Every 29 January Pamoate hours 2018 as 8:50am needed Problems Active Problems Medical Problem Onset Date Status Right upper quadrant pain Active Hyperemesis gravidarum Active False labor before 37 completed weeks of gestation in third Active trimester Elevated liver function tests Active Gallstones and inflammation of gallbladder without obstructi on Active Active Gallbladder disease affecting Active Dehydration Active Hypokalemia Active Procedures Procedure Date Performed Status Urine Culture January 19, 2019 completed Group B Streptococcus Screen (NABIL) January 19, 2019 comp leted Relevant Diagnostic Tests and/or Laboratory Data Laboratory Results Test Date/Time Result Interpretation Reference Result Perfo rming Range Comment Site Urine Color December Yellow 2018 9:31am POC Urine Deandra Positive Marijuana (THC) 2018 9:31am POC Urine October Positive Marijuana (THC) 2018 11:37am Urine Color October Dark 2018 Yellow 11:37am POC Urine October Positive Marijuana (THC) 2018 10:30am Urine Color October Yellow 2018 10:30am Urine Appearance Deandra Clear 2018 9:31am POC Urine Cocaine Deandra Negative 2018 9:31am POC Urine Cocaine October Positive 2018 11:37am Urine Appearance October Turbid 2018 11:37am Urine Appearance October Clear 2018 10:30am POC Urine Cocaine October Negative 2018 10:30am Urine Glucose Deandra Negative (UA) 2018 9:31am POC Urine Deandra Negative Morphine 2018 9:31am Urine Glucose October Negative (UA) 2018 11:37am POC Urine October Positive Morphine 2018 11:37am Urine Glucose October Negative (UA) 2018 10:30am POC Urine October Positive Morphine 2018 10:30am Urine Bilirubin Deandra negative 2018 9:31am POC Urine Deandra Negative Amphetamine 2018 9:31am Urine Bilirubin October moderate 2018 11:37am POC Urine October Negative Amphetamine 2018 11:37am Urine Bilirubin October negative 2018 10:30am POC Urine October Negative Amphetamine 2018 10:30am POC Urine Deandra Negative Methamphetamine 2018 9:31am Urine Ketones Deandra Negative 2018 mg/dL 9:31am Urine Ketones October Small 15 2018 mg/dL 11:37am POC Urine October Negative Methamphetamine 2018 11:37am Urine Ketones October Negative 2018 mg/dL 10:30am POC Urine October Negative Methamphetamine 2018 10:30am POC Urine Deandra Negative Barbiturates 2018 9:31am Urine Specific Deandra 1.010 [place] 2018 9:31am Urine Protein October 100++ 2018 11:37am POC Urine October Negative Barbiturates 2018 11:37am POC Urine October Negative Barbiturates 2018 10:30am Urine Protein October Negative 2018 10:30am POC Urine Deandra Negative Benzodiazepine 2018 9:31am Urine Blood Deandra negative 2018 9:31am POC Urine October Negative Benzodiazepine 2018 11:37am Urine pH October 7.0 2018 11:37am Urine pH October 7.0 2018 10:30am POC Urine October Negative Benzodiazepine 2018 10:30am POC Urine MDMA Deandra Negative 2018 9:31am Urine pH Deandra 8.5 2018 9:31am Urine Blood October negative 2018 11:37am POC Urine MDMA October Negative 2018 11:37am Urine Blood October negative 2018 10:30am POC Urine MDMA October Negative 2018 10:30am Urine Protein Deandra Negative 2018 9:31am POC Urine Deandra Negative Methadone 2018 9:31am Urine Specific October 1.020 [place] 2018 11:37am POC Urine October Negative Methadone 2018 11:37am POC Urine October Negative Methadone 2018 10:30am Urine Specific October 1.015 [place] 2018 10:30am Urine Deandra 0.2 Urobilinogen 2018 Dipstick 9:31am POC Urine Deandra Negative Oxycodone 2018 9:31am Urine October 1 Urobilinogen 2018 Dipstick 11:37am POC Urine October Negative Oxycodone 2018 11:37am Urine October 0.2 Urobilinogen 2018 Dipstick 10:30am POC Urine October Negative Oxycodone 2018 10:30am Urine Nitrate Deandra Negative 2018 9:31am POC Urine Deandra Negative Phencyclidine 2018 9:31am POC Urine October Negative Phencyclidine 2018 11:37am Urine Nitrate October Positive 2018 11:37am Urine Nitrate October Negative 2018 10:30am POC Urine October Negative Phencyclidine 2018 10:30am POC Urine Deandra Negative Buprenorphine 2018 9:31am Urine Leukocyte Deandra Large Esterase 2018 9:31am POC Urine October Negative Buprenorphine 2018 11:37am Urine Leukocyte October Small Esterase 2018 11:37am Urine Leukocyte October Small Esterase 2018 10:30am POC Urine October Negative Buprenorphine 2018 10:30am Urine Color Deandra Yellow Yellow [facility], [address] [place] [address] 36 E 2018 9:20pm [place] [address] Urine Appearance Deandra Clear Clear [facility], [address] [place] [address] 36 E 2018 9:20pm [place] [address] Urine pH Deandra 7.5 5.0-8.5 [facility], [address] [place] [address] 36 E 2018 9:20pm [place] [address] Urine Specific Deandra 1.015 1.005-1.03 [facility], [address] [place] [address] 36 E [place] 2018 0 9:20pm [place] [address] Urine Protein Deandra Trace Negative [facility], [address] [place] [address] 36 E 2018 9:20pm [place] [address] Urine Glucose Deandra Negative Negative [facility], [address] [place] [address] 36 E (UA) 2018 9:20pm [place] [address] Urine Ketones Deandra Negative Negative [facility], [address] [place] [address] 36 E 2018 9:20pm [place] [address] Urine Blood Deandra Negative Negative [facility], [address] [place] [address] 36 E 2018 9:20pm [place] [address] Urine Nitrate Deandra Negative Negative [facility], [address] [place] [address] 36 E 2018 9:20pm [place] [address] Urine Bilirubin Deandra Negative Negative CONFIRM [facility], [address] [place] [address] 36 E 2018 BILIRUBIN 9:20pm RESULT WITH Cyncollinan a SHREYA [address] ICTOTEST:NEG Urine Deandra 0.2 EU/dl [facility], [address] [place] [address] 36 E Urobilinogen 2018 9:20pm [place] [address] Urine Leukocyte December 2+ Negative [facility], [address] [place] [address] 36 E Esterase 2018 9:20pm [place] [address] Urine RBC Deandra 3-5 #/hpf [facility], [address] [place] [address] 36 E 2018 9:20pm [place] [address] Urine WBC December 10-20 [facility], [address] [place] [address] E 2018 #/hpf 9:20pm [place] [address] Urine Squamous December 3-5 #/hpf [facility], [address] [place] [address] E Epithelial Cells 2018 9:20pm [place] [address] Urine Amorphous Deandra 1+ /lpf None [facility], [address] [place] [address] E Sediment 2018 9:20pm [place] [address] Urine Bacteria Deandra 2+ /lpf NONE [facility], [address] [place] [address] E 2018 9:20pm [place] [address] Urine Mucus Deandra 1+ /lpf None [facility], [address] [place] [address] E 2018 9:20pm [place] [address] Urine Opiates Deandra Positive This is an [facility], [address] [place] [address] E Screen 2018 ng/mL UNCONFIRMED 9:20pm [place] [address] This result is for medical purposes and/or treatment only. Urine Barbituates Deandra Negative [facility], [address] [place] [address] E Screen 2018 ng/mL 9:20pm [place] [address] Urine Deandra Negative [facility], [address] [place] [address] 36 E Phencyclidine 2018 ng/mL Screen 9:20pm [place] [address] Urine Deandra Negative [facility], [address] [place] [address] E Amphetamines 2018 ng/mL Screen 9:20pm [place] [address] Urine Methadone Deadnra Negative [facility], [address] [place] [address] E Screen 2018 ng/mL 9:20pm [place] [address] Urine Denadra Negative [facility], [address] [place] [address] E Benzodiazepines 2018 ng/mL Screen 9:20pm [place] [address] Urine Cocaine Deandra Negative [facility], [address] [place] [address] E Screen 2018 ng/mL 9:20pm [place] [address] Urine Marijuana Deandra Positive This is an [facility], [address] [place] [address] E (THC) Screen 2018 ng/mL UNCONFIRMED 9:20pm result. [place]ASH [address] This result is for medical purposes and/or treatment only. Microbiology Results Procedure Source Result Collection Result Result Performin g Date/Time Date/Time Comment Site Urine Culture Urine,Dorothy Multiple December [facility], [address] [place] [address] n Catch organisms, 2018 suggests 9:20pm 9:18am [place] [address] contaminati on. Group B Vaginal Negative December [facility], [address] [place] [address] Streptococcus for Group B 2018 Screen (NABIL) Streptococc 9:32am 12:45pm [facility] [place] [address] [place]. Advance Directives Advance Directive Response Recorded Date/Time Does the patient have an advanced directive on No January 30, 2019 11:20am file? Living Will No January 30, 2019 11 :20am Does the patient have an advanced directive on No January 26, 2019 11:52am file? Living Will No January 26, 2019 11 :52am Chief Complaint and Reason for Visit Chief Complaint NST Induced labor Hype rtension OFFICE DROP OFF NST Due 1023 contractions NST Due 1023 contractions NST due 10-28 contractions Induction Reason for Visit Dehydration Elevated liver function test s False labor before 37 comple trevor weeks of gestation in third trimester Gallbladder disease affectin g Gallstones and inflammation of gallbladder without obstruction Hyperemesis gravidarum Hypokalemia Right upper quadrant pain Encounters Encounter Location(s) Arrival/Admit Date Discharge/Depart Date Provider(s) Registered [facility] Physician December 03, 2018 December 03, 2018 Nury Robles , Inpatient Group-Women's 8:10am 9:10am MD Delvin Robles Registered [facility] Physician January 12, Germán baldwin Inpatient Group-Women's 2018 12:19am MD Delvin Robles Departed [facility] Physician January 19, January 19, 2019 Spann , Physician/Provi Group-Women's 2018 9:25am 9:50am MD Shelton Visit Registered [facility] Physician January 19, Germán baldwin , Clinical Group-Lab Drop 2018 5:19pm MD Off to [facility] Departed [facility] Physician January 19, January 20, 2019 [facility] , Clinical Group-OB 2019 9:03pm 3:40am Outpatient Service Registered [facility] Physician January 20, January 20, 2019 [facility] Inpatient Group-Just for 2019 11:59pm 3:40am WomenTom Registered [facility] Physician January 25, 2019 January 26, 2019 Hugh Cuenca , Inpatient Group-Women's 10:32pm 7:14am MD Delvin Robles Departed [facility] Physician January 26, 2019 January 26, 2019 Nury Robles , Physician/Provi Group-Women's 10:41am 11:42am brett Office [facility] Travis Visit Departed [facility] Physician January 30, 2019 January 30, 2019 Nury Robles , Physician/Provi Group-Women's 10:11am 10:59am brett Office [facility] Travis Visit Registered [facility] Physician January 31, 2019 Germán pena , Inpatient Group-Women's 5:14am MD Delvin Robles Recent Diagnosis Onset Date Dehydration Elevated liver function tests False labor before 37 completed weeks of gestation in third trimester Gallbladder disease affecting Gallstones and inflammation of gallbladder without obs truction Hyperemesis gravidarum Hypokalemia Right upper quadrant pain Assessments Diagnosis Onset Date Resolution Status Dehydration acute Elevated liver function tests ac keiry False labor before 37 completed weeks of gestation in acute third trimester Gallbladder disease affecting acute Gallstones and inflammation of gallbladder without acute obstruction Hyperemesis gravidarum acute Hypokalemia acute Right upper quadrant pain acute Functional Status Observation Response Date Recorded Ambulation Ability Independent January 20, 2019 3:40am Functional status ambulatory January 30, 2019 11 :20am Functional status ambulatory January 26, 2019 11 :52am Functional status ambulatory January 19, 2019 9:53am Goals Acute Goals Nursing Diagnosis: Knowledge Deficit D isease/Condition Goal(s): Education of di sease process Instruction(s): Follow provider p timoteo/instructions (See attached discharge education) Follow/up with primary care provider as instructed in discharge packet Nursing Diagnosis: Knowledge Deficit D isease/Condition Goal(s): Education of di sease process Instruction(s): Follow provider p timoteo/instructions (See attached discharge education) Follow/up with primary care provider as instructed in discharge packet Immunizations Immunization Event Date Not Given Dose Steam Table Associate Lot Vac cine Reason Number Number Informatio n Statement (VIS) Deta il Fluzone Quad -January S not given Months 2011 Hepatitis A April VIS not given Vaccine, adol/ped 2007 dosage Hepatitis A November 29 no t given Vaccine, adol/ped 2008 dosage Human April VIS not gi baldo Papillomavirus 2007 Vaccine, quadrivalent Human January VIS not gi baldo Papillomavirus 2010 Vaccine, quadrivalent Live Attenuated January VIS not given Influenza Virus 2010 Vaccine Tetanus, April VIS not gi baldo Diphtheria, 2007 Pertussis (Tdap) Meningococcal April VIS no t given MCV4, unspecified 2007 formulation Mental Status Observation Response Date Recorded Able to Read Yes January 19, 2019 9:16pm Able to Write Yes January 19, 2019 9:16pm Medical Equipment No Medical Equipment Information available Insurance Providers Guarantor Lee Ann Au Address [address] [place] [address] Contact Info. Home Phone: Payer Policy Id Coverage Id Subscriber's Subscriber Id Effective E xpiration Name Date Date [id number] Lee Ann Au [id number] Claims 332 2 Self Pay Self N/A Plan of Treatment Given the fact that she continues to have severe pain along with nausea and vomiting. We will go ahead and plan to deliver her tomorrow at 38 weeks. We will go ahead and treat her for urinary tract infection. We will call in [place] twice daily. I have given her a prescription for Tylenol 3 number 20 tablets for pain and also Phenergan suppositories. We will see her back in a few days time. We will plan to deliver her next week at 38 weeks. We performed group B strep today. She is doing well. Her pain has resolved with her gallbladder. She had been admitted last week for severe gallbladder pain and early cholecystitis. She feels much better. She still has some nausea but it is much improved. She is able to eat and drink. She will continue with a fat-free diet. Future Tests Future scheduled test information is unavailable Pending Tests Pending diagnostic test information is unavailable Future Visits Future appointment information is unavailable Referrals to Other Providers Reason for Referral Start Provider Provider Contact Provider Address Referral Date Information Admission to [facility] February [address] [place] [address] Future Procedures Future procedure information is unavailable Future Medications Future medication information is unavailable Patient Instructions Antepartum Care Gallstones Fat-Restricted Diet How to Do Kick Counts Antepartum Care Diet Fat-Restricted Diet How to Do Kick Counts Antepartum Care How to Do Kick Counts Antepartum Care False Labor Diet Diet Social History Assigned Sex Female Vital Signs Vital Reading Result Reference Range Collection Date/ Time Height 152.4 cm December 03 10:06am Weight 63.50 kg December 03 10:06am Body Temperature 98.5 [degF] 97.6-99.6 December 03 10:06am Heart Rate 91 /min -December 03 10:06am Respiratory rate 18 /min -December 03 10:06am Oxygen saturation by Pulse 95 % 95-100 2018 10:06am oximetry BP Systolic 123 mm[Hg] 110-140 December 03 10:06am BP Diastolic 79 mm[Hg] 60-90 December 03 10:06am BMI (Body Mass Index) 27.3 kg/m2 November 10:06am Height 152.4 cm January 11, 2019 11:08pm Weight 63.04 kg January 11, 2019 11:08pm Body Temperature 97.9 [degF] 97.6-99.6 January 13, 2019 8:00am Heart Rate 78 /min -January 13, 2019 8:00am Respiratory rate 16 /min 04-18January 13, 2019 8:00am Oxygen saturation by Pulse 100 % 95-100 [facility] 2018 8:00am oximetry BP Systolic 109 mm[Hg] 110-140 January 13, 2019 8:00am BP Diastolic 72 mm[Hg] 60-90 January 13, 2019 8:00am BMI (Body Mass Index) 27.1 kg/m2 January 11, 2019 11:08pm Height 157.48 cm January 19, 2019 9:41am Weight 64.63 kg January 19, 2019 9:41am Heart Rate 90 /min -January 19, 2019 9:41am BP Systolic 132 mm[Hg] 110-140 January 19, 2019 9:41am BP Diastolic 88 mm[Hg] 60-90 January 19, 2019 9:41am BMI (Body Mass Index) 26.0 kg/m2 January 19, 2019 9:41am Height 152.4 cm January 19, 2019 9:16pm Weight 64.41 kg January 19, 2019 9:16pm Body Temperature 98.3 [degF] 97.6-99.6 January 19, 2019 9:16pm Heart Rate 72 /min 60-January 19, 2019 9:16pm Respiratory rate 18 /min -January 19, 2019 9:16pm Oxygen saturation by Pulse 98 % 95-100 [facility] 2018 9:16pm oximetry BP Systolic 131 mm[Hg] 110-140 January 19, 2019 9:16pm BP Diastolic 80 mm[Hg] 60-90 January 19, 2019 9:16pm BMI (Body Mass Index) 27.7 kg/m2 January 19, 2019 9:16pm Height 152.4 cm January 25 9 10:47pm Weight 62.05 kg January 25 9 10:47pm Body Temperature 98.8 [degF] 97.6-99.6 January 25 10:47pm Heart Rate 114 /min -January 25 9 10:47pm Respiratory rate 16 /min -January 25 10:47pm Oxygen saturation by Pulse 96 % 95-100 Octob 2018 10:47pm oximetry BP Systolic 122 mm[Hg] 110-140 January 25 9 10:47pm BP Diastolic 70 mm[Hg] 60-90 January 25 9 10:47pm BMI (Body Mass Index) 26.7 kg/m2 January 10:47pm Height 152.4 cm January 26 9 11:21am Weight 60.32 kg January 26 9 11:21am BP Systolic 130 mm[Hg] 110-140 January 26 9 11:21am BP Diastolic 82 mm[Hg] 60-90 January 26 9 11:21am BMI (Body Mass Index) 25.9 kg/m2 January 11:21am Height 152.4 cm January 30 9 10:26am Weight 64.58 kg January 30 9 10:26am BP Systolic 112 mm[Hg] 110-140 January 30 9 10:26am BP Diastolic 82 mm[Hg] 60-90 January 30 9 10:26am BMI (Body Mass Index) 27.8 kg/m2 January 10:26am Height 152.4 cm January 31 5:19am Weight 64.41 kg January 31 5:19am Heart Rate 88 /min 60-January 31 5:18am Respiratory rate 18 /min -January 31 5:18am Oxygen saturation by Pulse 98 % 95-100 Octob er 2018 5:18am oximetry BP Systolic 139 mm[Hg] 110-140 January 31 5:18am BP Diastolic 95 mm[Hg] 60-90 January 31 5:18am BMI (Body Mass Index) 27.7 kg/m2 January 5:19am Hospital Discharge Instructions Additional Instructions FOLLOW-UP WITH OB AT SCHEDULED
[2019-02-02 08:33] VITALS: BP 132/78
--- NOTE | 2019-02-02 09:37 | Discharge Summary ---
General - General Admission date:: 01/31/19 Discharge date: 02/02/19 HPI HPI: She is a 23-year-old 4 now para 1 aborta 3 who was 37 and 6 weeks gestational age. She has had severe gallbladder disease with nausea vomiting and dehydration. She has been admitted earlier in the . Ultrasound confirmed that she had multiple gallstones. She continued to have pain so we elected to deliver her at term. Hospital Course Hospital Course: She was found to be 2 cm dilated and had her membranes ruptured. She progressed under labor epidural to full dilation and delivered spontaneously a liveborn m neli child at 2:26 PM in the afternoon of January 31, 2019. The baby weighed 6 pounds 8 ounces and had Apgars of 8 at 1 minute and 9 at 5 minutes. She has done well and has remained afebrile with her hospitalization. She is eating and drinking and ambulating. She is bottlefeeding. Her lochia is normal. She is discharged home to follow-up with me in approximately 2 weeks time. She will continue with her vitamins and iron. She will take [id number] analgesics. She has Tylenol 3 at home she has been taking for her gallbladder pain. She has O+ blood, she is rubella immune and was group A streptococcus negative. She is being seen by renal social worker since she was positive for cocaine just a couple of weeks ago and earlier in the . She is also positive for marijuana. Rhogam Administration: Not Indicated Objective Vital signs: Temp Pulse Resp BP Pulse Ox 98.0 F 59 L 18 132/78 100 02/02/19 08:33 02/02/19 08:33 02/02/19 08:33 02/02/19 08:33 02/02/19 08:33 no acute distress DS: Diagnosis - Discharge Diagnosis (1) Gallbladder disease affecting Status: Acute (2) Status: Acute (3) Normal delivery at term Status: Acute (4) Gallstones and inflammation of gallbladder without obstruction Status: Acute (5) Right upper quadrant pain Status: Acute Discharge Plan - Patient Discharge Instructions ACTIVITY: No heavy lifting DIET: continue same diet, low fat, low cholesterol - Follow up Plan Disposition: Home, Self-Intermediate Medications: Home Medications Medication Instructions Recorded Confirmed Type Mv-Mn/Iron/FA/Herbal/Digestive 1 tab PO DAILY 01/11/19 01/31/19 History [ One Tablet] Acetaminophen with Codeine 1 - 2 tab PO Q4HP PRN #30 tab 01/13/19 01/31/19 Rx [Tylenol with Codeine #3 tablet] Ondansetron [Zofran 4mg ODT] 4 mg PO Q4HP PRN #30 tab.rapdis 01/13/19 01/31/19 Rx promethazine 12.5 mg rectal 12.5 mg HI Q4-6H PRN #12 each 01/26/19 01/31/19 Rx suppository cephALEXin [Cephalexin 500mg Tab] 500 mg PO BID 01/31/19 01/31/19 History hydrOXYzine pamoate [Vistaril 25mg 25 mg PO Q6HP PRN 02/01/19 02/01/19 History capsule] Prescriptions/Medication Reconciliation: Continued promethazine 12.5 mg rectal suppository 12.5 mg HI Q4-6H PRN #12 each PRN Reason: nausea and vomiting Mv-Mn/Iron/FA/Herbal/Digestive [ One Tablet] 1 tab PO DAILY Ondansetron [Zofran 4mg ODT] 4 mg PO Q4HP PRN #30 tab.rapdis PRN Reason: Nausea And Vomiting Acetaminophen with Codeine [Tylenol with Codeine #3 tablet] 1 - 2 tab PO Q4HP PRN #30 tab PRN Reason: Moderate To Severe Pain hydrOXYzine pamoate [Vistaril 25mg capsule] 25 mg PO Q6HP PRN PRN Reason: Sleep Discontinued cephALEXin [Cephalexin 500mg Tab] 500 mg PO BID - Problem Reconciliation Problems Reviewed?: Yes
== END 2019-02-02 15:10 | disposition home or self-care (01) | DRG 806 ==
LOC: OB 05:14
PROVIDERS: ADMIT Nurse Practitioner Obstetrics & Gynecology; ATTEND Nurse Practitioner Obstetrics & Gynecology
CPT/HCPCS: C1758

== ENCOUNTER 2020-07-07 15:27 | Emergency (ER) | payer BC, SELFPAY ==
[2020-07-07 15:28] VITALS: BP 129/83; PULSE 65; RESP 16; TEMP 37.1; O2SAT 100; BMI 20.5
[2020-07-07 15:47] VITALS: BMI 20.5
[2020-07-07 15:59] LABS: Microscopic, Urine URINE MICROSCOPIC (MICROSCOPIC)
[2020-07-07 16:02] LABS: Basophils % 0.3 % (0.1-2.0); Eosinophils # 0.1 K/mm3 (0.0-0.4); Eosinophils % 0.5 % (0.1-12.0); Hematocrit 42.1 % (37.0-47.0); Hemoglobin 14.1 g/dL (12.2-16.2); Lymphocytes # 2.3 K/mm3 (0.7-4.5); Lymphocytes % 15.9 % (10-50); Mean Corpuscular HGB Conc 33.5 g/dL (31.8-35.4); Mean Corpuscular Hemoglobin 26.6 pg (27.0-31.2); Mean Corpuscular Volume 79.3 fl (81-99); Mean Platelet Volume 7.7 fl (7.4-10.4); Monocytes # 0.8 K/mm3 (0.1-1.0); Monocytes % 5.6 % (1.7-9.3); Neutrophils # 11.4 K/mm3 (1.8-7.8); Neutrophils % 77.8 % (37.0-80.0); Platelet Count 344 K/mm3 (142-424); Red Cell Distribution Width 15.2 % (11.5-17.5); White Blood Count 14.7 K/mm3 (4.8-10.8)
[2020-07-07 16:04] LABS: Appearance,Urine SL CLOUDY (Clear); Blood, Urine Negative (Negative); Color,Urine YELLOW (Yellow); Glucose,Urine (UA) Negative (Negative); Ketones,Urine 1+ (Negative); Leukocyte Esterase,Urine TRACE (Negative); Nitrate,Urine Negative (Negative); PH,Urine 7.5 (5.0-8.5); Protein,Urine 2+ (Negative)
[2020-07-07 16:04] LABS: Urine Pregnancy, HCG Qual. Positive (Negative)
--- NOTE | 2020-07-07 16:05 | HMH.EDGENADL ---
ED Disposition Clinical Impression: Hyperemesis gravidarum, Hypokalemia Cholelithiasis Qualifiers: Cholelithiasis location: gallbladder Cholecystitis presence: without cholecystitis Biliary obstruction: without biliary obstruction Qualified Code(s): K80.20 - Calculus of gallbladder without cholecystitis without obstruction Disposition: Home, Self-Care Condition on Discharge: Good Additional Instructions: Phenergan suppositories for nausea and vomiting. Potassium as prescribed. Follow-up with Dr. Robles in his office, call for appointment. Return to the emergency department if worsening. Follow-up with general surgery, Dr. Luther, for gallstones. Call for appointment. Prescriptions: Promethazine HCl [Phenergan 25mg Suppository] 25 mg RC Q6HP PRN #10 supp.rect PRN Reason: Nausea And Vomiting Transmission Status: Sent to [facility] Potassium Chloride [K-Tab ER 20 mEq] 20 meq PO DAILY #7 tab Transmission Status: Sent to [facility] Referrals: PCP,No [Primary Care Provider] - Urbano Luther MD [Staff Physician] - Germán Robles MD [Staff Physician] - - Critical Care Critical Care Time: No Attestation: On 07/07/20, the high probability of a clinically significant, sudden or life threatening deterioration of the following system(s) required my full and direct attention, intervention and personal management. The time I documented below is in addition to time spent performing reported procedures but includes the following listed in this critical care notation. Medical Decision Making - Medical Records Medical records reviewed: Yes: I reviewed the patient's medical records. MR Comment: Reviewed [facility] portal. On 07/01/2020 patient had pelvic ultrasound which showed an IUP 8 weeks 2 days, and gallbladder ultrasound which showed cholelithiasis without cholecystitis. - Teofilo Inquiry Pt receiving controlled substance: No Vital Signs: 07/07/20 15:28 07/07/20 16:55 07/07/20 17:32 Temperature 98.7 F Temperature Source Oral Pulse Rate [Right Radial] 65 80 53 L Respiratory Rate 16 20 20 Blood Pressure [Right Arm] 129/83 206/87 H 122/60 Blood Pressure Mean [Right Arm] 98 126 80 Blood Pressure Source [Right Arm] Automatic Cuff Blood Pressure Position [Right Arm] Supine 02 Sat by Pulse Oximetry 100 99 98 Oxygen Delivery Method Room Air 07/07/20 18:23 Temperature Temperature Source Pulse Rate [Right Radial] 58 L Respiratory Rate 19 Blood Pressure [Right Arm] 120/78 Blood Pressure Mean [Right Arm] 92 Blood Pressure Source [Right Arm] Blood Pressure Position [Right Arm] 02 Sat by Pulse Oximetry 99 Oxygen Delivery Method - Lab Data Lab Results 07/07/20 15:40: WBC 14.7 H, RBC 5.30, Hgb 14.1, Hct 42.1, MCV 79.3 L, MCH 26.6 L, MCHC 33.5, RDW 15.2, Plt Count 344, MPV 7.7, Neut % (Auto) 77.8, Lymph % (Auto) 15.9, [place] % (Auto) 5.6, Eos % (Auto) 0.5, Baso % (Auto) 0.3, Neut # (Auto) 11.4 H, Lymph # (Auto) 2.3, [place] # (Auto) 0.8, Eos # (Auto) 0.1, Baso # (Auto) 0.0 07/07/20 15:40: Urine HCG, Qual Positive 07/07/20 15:40: Sodium 137, Potassium 2.6 L*, Chloride 94 L, Carbon Dioxide 31 H, Anion Gap 14.6, BUN 15, Creatinine 0.60, Estimated Creat Clear 109, Estimated GFR 123, Est GFR ( Amer) 149, Glucose 104 H, Calcium 9.9, Total Bilirubin 1.0, AST 39 H, ALT 26, Alkaline Phosphatase 104, Total Protein 9.4 H, Albumin 5.0, Globulin 4.4 H, Albumin/Globulin Ratio 1.1, HCG, Quant [id number] H 07/07/20 15:40: Urine Opiates Screen Negative, Urine Methadone Screen Negative, Ur Barbituates Screen Negative, Ur Phencyclidine Scrn Negative, Ur Amphetamines Screen Negative, U Benzodiazepines Scrn Negative, Urine Cocaine Screen Negative, U Marijuana (THC) Screen Positive H 07/07/20 15:48: Urine Color Yellow, Urine Appearance Sl cloudy, Urine pH 7.5, Ur Specific [place] 1.020, Urine Protein 2+, Urine Glucose (UA) Negative, Urine Ketones 1+, Urine Blood Negative, Urine Nitrate Negative,
[2020-07-07 16:06] LABS: Chloride 94 mmol/L (98-107); Sodium 137 mmol/L (136-145)
[2020-07-07 16:07] LABS: Potassium 2.6 mmoL/L (3.5-5.1)
[2020-07-07 16:08] LABS: Alanine Aminotransferase 26 U/L (12-78); Aspartate Amino Transferase 39 U/L (14-36); Blood Urea Nitrogen 15 mg/dl (7-17); Creatinine Clearance Estimated 109 mL/min (50-200); Estimated Glomerular Filt Rate 123 ml/min (>60); GFR (African American) 149 ML/MIN (>60)
--- NOTE | 2020-07-07 16:08 | PC.NURSE ---
LAB CALLED WITH CRITICAL POTTASSIUM 2.6 MD AWARE
[2020-07-07 16:09] LABS: Albumin/Globulin Ratio 1.1 (1.1-1.8); Alkaline Phosphatase 104 U/L (38-126); Anion Gap 14.6 mEq/L (5-15); Calcium 9.9 mg/dl (8.4-10.2); Carbon Dioxide 31 mmol/L (22.0-30.0); Globulin 4.4 g/dL (1.3-3.2); Glucose 104 mg/dl (74-100); Total Protein,Serum 9.4 g/dl (6.3-8.2)
[2020-07-07 16:10] LABS: Bilirubin,Urine Negative (Negative)
[2020-07-07 16:13] LABS: Amorphous Sediment,Urine 2+ /lpf; Bacteria,Urine Trace /lpf; Squamous Epithelial Cell,Urine 20-50 #/hpf (0-5); WBC,Urine Occasional #/hpf (0-3)
[2020-07-07 16:17] LABS: Amphetamine/Metha Screen,Urine Negative ng/ml (<1000); Barbiturates Screen,Urine Negative ng/ml (<200)
[2020-07-07 16:18] LABS: Benzodiazepines Screen,Urine Negative ng/ml (<200)
[2020-07-07 16:19] LABS: Cannabinoid Screen,Urine Positive ng/ml (<50); Cocaine Screen,Urine Negative ng/ml (<300)
[2020-07-07 16:20] LABS: Methadone Screen,Urine Negative ng/ml (<300); Opiate Screen,Urine Negative ng/ml (<300)
[2020-07-07 16:21] LABS: Phencyclidine Screen,Urine Negative ng/ml (<25)
[2020-07-07 16:52] LABS: HCG,Quantitative 124350 mIU/ml (0-5.42)
[2020-07-07 16:55] VITALS: BP 206/87; PULSE 80; RESP 20; O2SAT 99
[2020-07-07 17:32] VITALS: BP 122/60; PULSE 53; RESP 20; O2SAT 98
[2020-07-07 18:23] VITALS: BP 120/78; PULSE 58; RESP 19; O2SAT 99
[2020-07-07 19:19] VITALS: BP 118/80; PULSE 56; RESP 17; TEMP 36.6; O2SAT 98
== END 2020-07-07 19:30 | disposition home or self-care (01) ==
PROVIDERS: Emergency Provider Emergency Medicine
DX: O21.0 Mild hyperemesis gravidarum (principal); Z3A.08 8 weeks gestation of pregnancy; E87.6 Hypokalemia; K80.20 Calculus of gallbladder without cholecystitis without obstruction; Z88.2 Allergy status to sulfonamides; F17.210 Nicotine dependence, cigarettes, uncomplicated
CPT/HCPCS: 80053; 80305; 81001; 81025; 84702; 85025; 96365; 96367; 96375; 99283

== ENCOUNTER → 2020-11-05 10:32 | Outpatient (CLI) | payer BC, SELFPAY ==
[2020-11-05 11:07] LABS: White Blood Count 10.2 K/mm3 (4.8-10.8)
[2020-11-05 11:08] LABS: Basophils % 0.1 % (0.1-2.0); Eosinophils # 0.1 K/mm3 (0.0-0.4); Eosinophils % 1.2 % (0.1-12.0); Hematocrit 33.3 % (37.0-47.0); Hemoglobin 11.1 g/dL (12.2-16.2); Lymphocytes % 19.3 % (10-50); Mean Corpuscular HGB Conc 33.3 g/dL (31.8-35.4); Mean Corpuscular Hemoglobin 28.1 pg (27.0-31.2); Mean Corpuscular Volume 84.3 fl (81-99); Mean Platelet Volume 7.9 fl (7.4-10.4); Monocytes # 0.5 K/mm3 (0.1-1.0); Monocytes % 4.6 % (1.7-9.3); Neutrophils # 7.6 K/mm3 (1.8-7.8); Neutrophils % 74.8 % (37.0-80.0); Platelet Count 271 K/mm3 (142-424); Red Blood Count 3.95 M/mm3 (4.20-5.40); Red Cell Distribution Width 14.2 % (11.5-17.5)
[2020-11-05 11:33] LABS: Chloride 108 mmol/L (98-107); Sodium 138 mmol/L (136-145)
[2020-11-05 11:36] LABS: Blood Urea Nitrogen 8 mg/dl (7-17); Calcium 8.8 mg/dl (8.4-10.2); Carbon Dioxide 22 mmol/L (22.0-30.0); Estimated Glomerular Filt Rate 150 ml/min (>60); GFR (African American) 182 ML/MIN (>60); Glucose 81 mg/dl (74-100)
[2020-11-06 04:16] LABS: HIV Screen 4th Generation wRfx Non Reactive (Non Reactive)
[2020-11-06 07:21] LABS: Hepatitis B Surface Antigen Negative (Negative); Hepatitis C Antibody <0.1 s/co ratio (0.0-0.9)
[2020-11-06 09:01] LABS: Rubella Antibodies, IgG 3.42 index (Immune >0.99)
[2020-11-06 11:38] LABS: Rapid Plasma Reagin Ab Titer Non Reactive (NonRea<1:1)
== END ==
LOC: LAB 14:52 → LAB.DROPOF 16:47 → LAB 16:48
PROVIDERS: Visit Provider Nurse Practitioner Obstetrics & Gynecology
DX: N39.0 Urinary tract infection, site not specified; R39.9 Unspecified symptoms and signs involving the genitourinary system; Z34.91 Encounter for supervision of normal pregnancy, unspecified, first trimester; Z3A.21 21 weeks gestation of pregnancy
CPT/HCPCS: 36415; 80048; 83655; 85025; 86592; 86703; 86762; 86850; 87086; 87340; 87380; G0432

== ENCOUNTER 2020-11-15 16:16 | Outpatient (CLI) | payer BC, SELFPAY ==
[2020-11-15 16:50] VITALS: BMI 24.2
[2020-11-15 18:26] LABS: Microscopic, Urine URINE MICROSCOPIC (MICROSCOPIC)
[2020-11-15 18:28] LABS: Appearance,Urine CLEAR (Clear); Bilirubin,Urine Negative (Negative); Blood, Urine Negative (Negative); Color,Urine YELLOW (Yellow); Glucose,Urine (UA) Negative (Negative); Ketones,Urine Negative (Negative); Leukocyte Esterase,Urine 1+ (Negative); Nitrate,Urine Negative (Negative); Protein,Urine Negative (Negative); Urobilinogen,Urine 0.2 EU/dl (0.2)
[2020-11-15 18:41] LABS: Amphetamine/Metha Screen,Urine Negative ng/ml (<1000); Barbiturates Screen,Urine Negative ng/ml (<200)
[2020-11-15 18:42] LABS: Benzodiazepines Screen,Urine Negative ng/ml (<200)
[2020-11-15 18:43] LABS: Cannabinoid Screen,Urine Positive ng/ml (<50); Cocaine Screen,Urine Negative ng/ml (<300)
[2020-11-15 18:44] LABS: Bacteria,Urine Trace /lpf; Methadone Screen,Urine Negative ng/ml (<300); Squamous Epithelial Cell,Urine Occasional #/hpf (0-5)
[2020-11-15 18:45] LABS: Opiate Screen,Urine Negative ng/ml (<300); Phencyclidine Screen,Urine Negative ng/ml (<25)
[2020-11-15 18:52] LABS: Alanine Aminotransferase 134 U/L (12-78); Albumin Level 3.8 g/dl (3.5-5.0); Albumin/Globulin Ratio 1.1 (1.1-1.8); Alkaline Phosphatase 104 U/L (38-126); Anion Gap 10.7 mEq/L (5-15); Aspartate Amino Transferase 97 U/L (14-36); Bilirubin,Total 0.5 mg/dl (0.2-1.3); Blood Urea Nitrogen 6 mg/dl (7-17); Calcium 9.3 mg/dl (8.4-10.2); Carbon Dioxide 28 mmol/L (22.0-30.0); Chloride 103 mmol/L (98-107); Creatinine Clearance Estimated 127 mL/min (50-200); Estimated Glomerular Filt Rate 122 ml/min (>60); GFR (African American) 147 ML/MIN (>60); Globulin 3.6 g/dL (1.3-3.2); Glucose 111 mg/dl (74-100); Sodium 139 mmol/L (136-145); Total Protein,Serum 7.4 g/dl (6.3-8.2)
[2020-11-15 18:53] VITALS: BP 133/77; PULSE 94; RESP 18; TEMP 37.4; O2SAT 100; BMI 24.2
[2020-11-15 18:55] LABS: Potassium 2.7 mmoL/L (3.5-5.1)
== END 2020-11-15 21:20 | disposition home or self-care (01) ==
LOC: OBOUT 16:19 → OB 16:20
PROVIDERS: PCP Nurse Practitioner Obstetrics & Gynecology; Visit Provider Obstetrics & Gynecology
DX: O26.899 Other specified pregnancy related conditions, unspecified trimester (principal); O21.9 Vomiting of pregnancy, unspecified; Z3A.23 23 weeks gestation of pregnancy
CPT/HCPCS: 59025; 80053; 80305; 81001; 87086; 96365; 96367; G0463; J2405

== ENCOUNTER → 2020-11-22 11:26 | Outpatient (CLI) | payer BC, SELFPAY ==
--- NOTE | 2020-11-22 11:27 | US_ITS ---
PROCEDURE: US OB /MATERNAL DETAIL CLINICAL INDICATION: 20 week gestation Anatomy Late to care LMP is unknown This is first ultrasound COMPARISON: US US OB BPP W/FET-MAT S/D from 01/12/2019 FINDINGS: Single live fetus is present which is in breech presentation. heart and body motion noted. Placenta is posterior in implantation and grade 1. . Complete survey performed and was unremarkable on the submitted images as in PACS. No discrete anomalies identified on survey imaging by technologist. Active fetus. Three-vessel cord with satisfactory umbilical cord insertion. 4- chamber heart noted. Survey of brain & ventricles Unremarkable. Face and neck survey unremarkable. Diaphragm and chest views unremarkable. Abdomen: Both kidneys noted and unremarkable. Stomach noted and satisfactory. There is a persistent hypoechoic region within the lower pelvic area of the fetus on the left with some specular echoes extending low in the pelvis and to the anterior abdominal wall but not into the cord area. This measures approximately 4 x 1.7 cm. This appears in capsulated. This does appear to peristalsis and may represent meconium within the colon. Follow-up is suggested to confirm stability. Spine: Survey of the spine satisfactory with no anomalies identified nor imaged. Both arms and legs noted. Amniotic Fluid: Adequate. Maternal adnexa: No significant findings. Measurements: Average ultrasound age 28weeks 4days. Gestational Age Estimated due date by ultrasound age 1002/10/2021. Estimated weight 1,216g BPD = 28weeks 4days OFD = 28weeks 6days HC = 28weeks 4days AC = 28weeks 3days FL = 28weeks 3days Growth Percentile= % Heart Rate = 158bpm Cerebellum = 30weeks 5days Humerus = 28weeks 3days HC/AC is 1.09 CI is 0.75 FL/BPD is 0.75 FL/AC is 0.22 IMPRESSION: Live IUP in breech presentation with an average ultrasound age 28 weeks and 4 days. All parameters correlate. Persistent tubular area noted in the left lower quadrant of the fetus with questionable extension to the abdominal wall containing internal specular echoes which appears to peristalsis on may represent meconium within the colon. High-risk Ob ultrasound may be in order for confirmation. Follow-up is suggested. Dictated by: Cheng Norman MD 11/26/2020 11:24 Cheng Norman MD in OV 11/26/2020 11:24
== END ==
PROVIDERS: PCP Nurse Practitioner Obstetrics & Gynecology; Visit Provider Nurse Practitioner Obstetrics & Gynecology
DX: Z34.90 Encounter for supervision of normal pregnancy, unspecified, unspecified trimester (principal); Z3A.20 20 weeks gestation of pregnancy
CPT/HCPCS: 76811

== ENCOUNTER 2020-11-29 13:06 | Outpatient (CLI) | payer BC, SELFPAY ==
[2020-11-29 13:20] VITALS: BMI 24.3
[2020-11-29 13:37] VITALS: BP 118/80; PULSE 85; RESP 16; TEMP 37.2; O2SAT 97; BMI 24.3
[2020-11-29 13:49] LABS: Microscopic, Urine URINE MICROSCOPIC (MICROSCOPIC)
[2020-11-29 13:52] LABS: Appearance,Urine CLEAR (Clear); Bilirubin,Urine Negative (Negative); Blood, Urine Negative (Negative); Color,Urine YELLOW (Yellow); Glucose,Urine (UA) Negative (Negative); Ketones,Urine Negative (Negative); Leukocyte Esterase,Urine 2+ (Negative); Nitrate,Urine Negative (Negative); Protein,Urine Negative (Negative); Urobilinogen,Urine 0.2 EU/dl (0.2)
[2020-11-29 14:00] LABS: Bacteria,Urine Trace /lpf
[2020-11-29 14:03] LABS: Barbiturates Screen,Urine Negative ng/ml (<200); Benzodiazepines Screen,Urine Negative ng/ml (<200)
[2020-11-29 14:04] LABS: Amphetamine/Metha Screen,Urine Negative ng/ml (<1000)
[2020-11-29 14:05] LABS: Cocaine Screen,Urine Negative ng/ml (<300); Methadone Screen,Urine Negative ng/ml (<300)
[2020-11-29 14:06] LABS: Cannabinoid Screen,Urine Positive ng/ml (<50)
[2020-11-29 14:07] LABS: Opiate Screen,Urine Negative ng/ml (<300); Phencyclidine Screen,Urine Negative ng/ml (<25)
== END 2020-11-29 14:45 | disposition home or self-care (01) ==
LOC: OBOUT 13:10 → OB 13:11
PROVIDERS: Obstetrics & Gynecology; Visit Provider Nurse Practitioner Obstetrics & Gynecology
DX: O47.03 False labor before 37 completed weeks of gestation, third trimester (principal); Z3A.29 29 weeks gestation of pregnancy; R10.2 Pelvic and perineal pain
CPT/HCPCS: 59025; 80305; 81001; 87086; G0463

== ENCOUNTER 2023-03-30 18:42 | Emergency (ER) | payer BC, SELFPAY ==
[2023-03-30 18:43] VITALS: BP 117/70; PULSE 97; RESP 18; TEMP 37.4; O2SAT 99; BMI 28.3
--- NOTE | 2023-03-30 19:00 | HMH.EDGENADL ---
Discharge Plan Disposition Patient Disposition: Home, Self-Care Prescriptions Prescriptions: New promethazine-DM 6.25-15 mg/5 mL syrup 5 ml PO Q6H PRN (Reason: cough) 7 Days Qty: 118 0RF ibuprofen 600 mg tablet 600 mg PO Q8H PRN (Reason: pain) 7 Days Qty: 21 0RF No Action Flintstones Complete Tablet,Chewable 1 tab PO DAILY promethazine 12.5 mg tablet 12.5 mg PO Q4-6H PRN (Reason: nausea and vomiting) Qty: 30 1RF ondansetron 4 mg tablet,disintegrating 4 mg PO Q6H PRN (Reason: nausea and vomiting) Qty: 30 0RF promethazine 25 mg suppository 25 mg ID Q6H PRN (Reason: nausea and vomiting) ferrous sulfate 325 MG tablet 325 mg PO DAILY potassium chloride 20 MEQ tablet extended release 20 meq PO DAILY Referrals Follow up/Referrals: Liza Vasquez [Primary Care Provider] - See instructions Activity Restrictions/Add. Instructions Additional Instructions/Restrictions: Your headache sore throat ear pain cough body aches all consistent with a viral syndrome. Please continue to take the prescribed ibuprofen and 1000 mg of Tylenol 3 times a day as well as her cough medicine. Return with any significant shortness of breath changes in mental status high fevers that are not broken with Tylenol or ibuprofen or other concerns. Clinical Impressions Clinical Impression: Upper respiratory infection Instructions Patient Instructions: DI for Acute Bronchitis Discharge ED Provider: Roopa Cuenca General Adult HPI General Chief complaint: Upper Respiratory Infection Stated complaint: sore throat, ear pain, body pain Time Seen by Provider: 03/30/23 18:52 Mode of Arrival: Ambulatory Source of Information: Patient Limitations: No Limitations Description of Symptoms (Recalled from ER Triage Doc. by RN): c/o sore throat, body aches, ALEXANDER and ear pain that started last night. History of Present Illness HPI narrative: 27-year-old female previously healthy no medical problems presents today with multiple complaints including sore throat body aches headache ear pain and cough. No shortness of breath she has not had any Tylenol ibuprofen all day today other than this morning. Related Data Home Medications Medication Instructions Recorded Confirmed pediatric multivitamin no.76 1 tab PO DAILY Diet supplement 10/14/20 11/05/20 (Flintstones Complete chewable tablet) promethazine 25 mg rectal 25 mg ID Q6H PRN nausea and 11/06/20 suppository vomiting ferrous sulfate 325 mg (65 mg 325 mg PO DAILY Diet supplement 11/29/20 iron) tablet potassium chloride 20 mEq 20 meq PO DAILY Diet supplement 11/29/20 tablet,extended release Previous Rx's Medication Instructions Recorded ondansetron 4 mg disintegrating 4 mg PO Q6H PRN nausea and 10/14/20 tablet vomiting #30 tabs promethazine 12.5 mg tablet 12.5 mg PO Q4-6H PRN nausea and 10/14/20 vomiting #30 tabs ibuprofen 600 mg tablet 600 mg PO Q8H PRN pain 7 days #21 03/30/23 tabs promethazine-DM 6.25 mg-15 mg/5 mL 5 ml PO Q6H PRN cough 7 days #118 03/30/23 oral syrup mL Allergies Allergy/AdvReac Type Severity Reaction Status Date / Time Sulfa (Sulfonamide Allergy Unknown Fever Verified 11/05/20 14:26 Antibiotics) [SULFA (SULFONAMIDE ANTIBIOTICS)] [facility] Disclaimer: The information contained in this section may have been updated after the patient was seen, as this information can be updated by other users. Social History Smoking Status: Current every day smoker alcohol intake: never substance use type: former substance user, marijuana, crack/cocaine and other current occupational status: employed Travel in the last 8 weeks: None ROS Obtained: Yes All systems reviewed & no additional complaints except as documented Physical Exam General General appearance: alert and in no apparent distress Head Head exam: atraumatic and normocephalic Eye Eye exam: Present normal appearance ENT
[2023-03-30 19:18] VITALS: BP 117/70; PULSE 78; RESP 16; TEMP 36.7
== END 2023-03-30 19:19 | disposition home or self-care (01) ==
PROVIDERS: Emergency Provider Student in an Organized Health Care Education/Training Program; PCP Nurse Practitioner Family
DX: J06.9 Acute upper respiratory infection, unspecified (principal); J02.9 Acute pharyngitis, unspecified; R51.9 Headache, unspecified; R05.9 Cough, unspecified; F17.200 Nicotine dependence, unspecified, uncomplicated
CPT/HCPCS: 99283

== ENCOUNTER 2023-04-02 20:51 | Emergency (ER) | payer BC, SELFPAY ==
[2023-04-02 20:52] VITALS: BP 136/80; PULSE 83; RESP 18; TEMP 37.1; O2SAT 98; BMI 30.2
[2023-04-02 21:11] VITALS: BP 136/80; PULSE 83; RESP 18; O2SAT 98
--- NOTE | 2023-04-02 21:23 | HMH.EDGENADL ---
Discharge Plan Disposition Patient Disposition: Home, Self-Care Prescriptions Prescriptions: New methocarbamol 500 mg tablet 500 mg PO Q6H PRN (Reason: pain) Qty: 30 0RF lidocaine 5 % adhesive patch,medicated 1 patch topical DAILY PRN (Reason: pain) Qty: 30 0RF Rx Instructions: leave on most painful area for up to 12 hrs No Action cetirizine 10 mg tablet 10 mg PO DAILY Patient Comments: TAKE 1 TABLET 1 TIME EACH DAY ibuprofen 600 mg tablet 600 mg PO Q8H PRN (Reason: Pain) Patient Comments: TAKE 1 TABLET EVERY 8 HOURS NEEDED FOR PAIN promethazine-DM 6.25-15 mg/5 mL syrup 5 ml PO Q6H PRN (Reason: cough) 7 Days Qty: 118 0RF Referrals Follow up/Referrals: Liza Vasquez [Primary Care Provider] - See instructions Activity Restrictions/Add. Instructions Additional Instructions/Restrictions: Please follow-up with your primary care provider. Please return to the emergency department if you develop any new or worsening symptoms or become concerned for your health. Please take Tylenol and ibuprofen as needed for pain. Please take muscle relaxer as needed for pain. Please use lidocaine patches and hot and cold pads needed. Clinical Impressions Clinical Impression: Low back strain Qualifiers: Encounter type: initial encounter Qualified Code(s): S39.012A - Strain of muscle, fascia and tendon of lower back, initial encounter Instructions Patient Instructions: DI for Low Back Pain Discharge ED Provider: Jose Luis Meneses General Adult HPI General Chief complaint: Back Pain/Injury Stated complaint: lower back pain Time Seen by Provider: 04/02/23 21:13 History of Present Illness HPI narrative: 27-year-old female, previously healthy presents with acute onset right low back pain after bending over to set her child down. She reports pain is localized to the right low back. Denies any numbness or tingling, denies any bowel or bladder incontinence, denies any history of pathology in the spine in the past. Related Data Home Medications Medication Instructions Recorded Confirmed cetirizine 10 mg tablet 10 mg PO DAILY 04/02/23 04/02/23 ibuprofen 600 mg tablet 600 mg PO Q8H PRN Pain 04/02/23 04/02/23 Previous Rx's Medication Instructions Recorded promethazine-DM 6.25 mg-15 mg/5 mL 5 ml PO Q6H PRN cough 7 days #118 03/30/23 oral syrup mL lidocaine 5 % topical patch 1 patch topical DAILY PRN pain #30 04/02/23 ea methocarbamol 500 mg tablet 500 mg PO Q6H PRN pain #30 tabs 04/02/23 Allergies Allergy/AdvReac Type Severity Reaction Status Date / Time Sulfa (Sulfonamide Allergy Unknown Fever Verified 11/05/20 14:26 Antibiotics) [SULFA (SULFONAMIDE ANTIBIOTICS)] [facility] Disclaimer: The information contained in this section may have been updated after the patient was seen, as this information can be updated by other users. Social History Smoking Status: Current every day smoker alcohol intake: never substance use type: former substance user, marijuana, crack/cocaine and other current occupational status: employed Travel in the last 8 weeks: None ROS Obtained: Yes All systems reviewed & no additional complaints except as documented Physical Exam General General appearance: alert and in no apparent distress Head Head exam: atraumatic and normocephalic Eye Eye exam: Present normal appearance, PERRL and EOMI ENT ENT exam: Present normal oropharynx and normal external ear exam Neck Neck exam: Present normal inspection and full ROM Chest Chest inspection: Present normal inspection and symmetric chest wall rise; Absent tenderness Respiratory Respiratory exam: Present normal lung sounds bilaterally; Absent respiratory distress Cardiovascular Cardiovascular exam: Present regular rate and normal rhythm Abdominal Exam Abdominal exam: Present soft; Absent distention, tenderness or guarding Extremities Exam Extremities exam: Present no
[2023-04-02 21:31] VITALS: BP 121/83; PULSE 78; RESP 16; O2SAT 97
--- NOTE | 2023-04-02 21:45 | XR_ITS ---
PROCEDURE INFORMATION: Exam: XR Right Hip Exam date and time: 04/02/2023 9:42 PM Age: 27 years old Clinical indication: Hip pain; Right hip TECHNIQUE: Imaging protocol: Radiologic exam of the right hip. Views: 2 or 3 views hip with pelvis when performed. COMPARISON: US OB /MATERNAL DETAIL 11/22/2020 11:28 AM FINDINGS: Bones/joints: Unremarkable. No acute fracture. Soft tissues: Unremarkable. IMPRESSION: No acute findings.
[2023-04-02 22:54] VITALS: BP 121/67; PULSE 67; RESP 18; TEMP 36.9; O2SAT 97
== END 2023-04-02 22:57 | disposition home or self-care (01) ==
PROVIDERS: Emergency Provider Emergency Medicine; PCP Nurse Practitioner Family
DX: S39.012A Strain of muscle, fascia and tendon of lower back, initial encounter (principal); X50.1XXA Overexertion from prolonged static or awkward postures, initial encounter; F17.210 Nicotine dependence, cigarettes, uncomplicated
CPT/HCPCS: 73502; 99283

== ENCOUNTER 2023-05-04 10:58 | Emergency (ER) | payer BC, SELFPAY ==
[2023-05-04 10:59] VITALS: BP 136/89; PULSE 109; RESP 18; TEMP 36.7; O2SAT 94; BMI 29.2
[2023-05-04 11:15] LABS: Microscopic, Urine URINE MICROSCOPIC (MICROSCOPIC)
[2023-05-04 11:26] LABS: Appearance,Urine CLEAR (Clear); Bilirubin,Urine Negative (Negative); Blood, Urine Negative (Negative); Color,Urine YELLOW (Yellow); Glucose,Urine (UA) Negative (Negative); Ketones,Urine Negative (Negative); Leukocyte Esterase,Urine TRACE (Negative); Nitrate,Urine Negative (Negative); Protein,Urine Negative (Negative); Urobilinogen,Urine 0.2 EU/dl (0.2)
[2023-05-04 11:30] VITALS: BP 107/66; PULSE 80; O2SAT 98
--- NOTE | 2023-05-04 11:35 | PC.NURSE ---
Dr. Collado at [facility] for pt eval
[2023-05-04 11:42] LABS: Amorphous Sediment,Urine Trace /lpf; Squamous Epithelial Cell,Urine Occasional #/hpf (0-5); WBC,Urine Occasional #/hpf (0-3)
[2023-05-04 11:56] LABS: Basophils % 0.2 % (0.1-2.0); Eosinophils # 0.1 K/mm3 (0.0-0.4); Hematocrit 37.2 % (37.0-47.0); Hemoglobin 12.1 g/dL (12.2-16.2); Lymphocytes # 1.2 K/mm3 (0.7-4.5); Lymphocytes % 11.7 % (10-50); Mean Corpuscular HGB Conc 32.7 g/dL (31.8-35.4); Mean Corpuscular Hemoglobin 24.5 pg (27.0-31.2); Mean Corpuscular Volume 75.1 fl (81-99); Mean Platelet Volume 7.9 fl (7.4-10.4); Monocytes # 0.4 K/mm3 (0.1-1.0); Monocytes % 4.3 % (1.7-9.3); Neutrophils # 8.4 K/mm3 (1.8-7.8); Neutrophils % 82.8 % (37.0-80.0); Platelet Count 274 K/mm3 (142-424); Red Blood Count 4.95 M/mm3 (4.20-5.40); Red Cell Distribution Width 16.8 % (11.5-17.5); White Blood Count 10.2 K/mm3 (4.8-10.8)
--- NOTE | 2023-05-04 11:58 | ED_ITS ---
Discharge Plan Disposition Patient Disposition: Home, Self-Care Condition: Good Prescriptions Prescriptions: New ondansetron 4 mg tablet,disintegrating 4 mg PO Q6H PRN (Reason: nausea and vomiting) Qty: 10 0RF No Action cetirizine 10 mg tablet 10 mg PO DAILY Patient Comments: TAKE 1 TABLET 1 TIME EACH DAY ibuprofen 600 mg tablet 600 mg PO Q8H PRN (Reason: Pain) Patient Comments: TAKE 1 TABLET EVERY 8 HOURS NEEDED FOR PAIN methocarbamol 500 mg tablet 500 mg PO Q6H PRN (Reason: pain) Qty: 30 0RF lidocaine 5 % adhesive patch,medicated 1 patch topical DAILY PRN (Reason: pain) Qty: 30 0RF Rx Instructions: leave on most painful area for up to 12 hrs promethazine-DM 6.25-15 mg/5 mL syrup 5 ml PO Q6H PRN (Reason: cough) 7 Days Qty: 118 0RF Referrals Follow up/Referrals: Liza Vasquez [Primary Care Provider] - See instructions Activity Restrictions/Add. Instructions Additional Instructions/Restrictions: Call your family doctor to establish care for this visit to the emergency department and schedule follow-up within 48 hours to ensure improvement. If you have any worsening of your condition or any other concerning signs or symptoms, return to the emergency department or your primary care doctor for further evaluation. Clinical Impressions Clinical Impression: Abdominal pain Stand Alone Forms Stand Alone Forms: Work/School Release Instructions Patient Instructions: DI for Acute Abdominal Pain Discharge ED Provider: Rich Collado General Adult HPI General Chief complaint: Abdominal Pain Stated complaint: left abd pain Time Seen by Provider: 05/04/23 11:05 Mode of Arrival: Ambulatory Source of Information: Patient Limitations: No Limitations Description of Symptoms (Recalled from ER Triage Doc. by RN): Patient complaint of left lower abdomen pain that started yesterday. States it is like she is cramping. Denies n/v/d. History of Present Illness HPI narrative: 27-year-old female no relevant medical history presenting with lower abdominal pain. Patient states that she has had Depo shot and does not have periods. Has not had intercourse in over a year. States that she started having lower abdominal pain started yesterday that is cramping on the left lower quadrant and suprapubic. No vaginal discharge or bleeding. No diarrhea or constipation. No urinary symptoms. Related Data Home Medications Medication Instructions Recorded Confirmed cetirizine 10 mg tablet 10 mg PO DAILY 04/02/23 04/02/23 ibuprofen 600 mg tablet 600 mg PO Q8H PRN Pain 04/02/23 04/02/23 Previous Rx's Medication Instructions Recorded promethazine-DM 6.25 mg-15 mg/5 mL 5 ml PO Q6H PRN cough 7 days #118 03/30/23 oral syrup mL lidocaine 5 % topical patch 1 patch topical DAILY PRN pain #30 04/02/23 ea methocarbamol 500 mg tablet 500 mg PO Q6H PRN pain #30 tabs 04/02/23 ondansetron 4 mg disintegrating 4 mg PO Q6H PRN nausea and 05/04/23 tablet vomiting #10 tabs Allergies Allergy/AdvReac Type Severity Reaction Status Date / Time Sulfa (Sulfonamide Allergy Unknown Fever Verified 11/05/20 14:26 Antibiotics) [SULFA (SULFONAMIDE ANTIBIOTICS)] [facility] Disclaimer: The information contained in this section may have been updated after the patient was seen, as this information can be updated by other users. Social History Smoking Status: Current every day smoker alcohol intake: never substance use type: former substance user, marijuana, crack/cocaine and other current occupational status: employed Travel in the last 8 weeks: None ROS Obtained: Yes All systems reviewed & no additional complaints except as documented Physical Exam General General appearance: alert and in no apparent distress Head Head exam: atraumatic and normocephalic Eye Eye exam: Present normal appearance, PERRL and EOMI ENT ENT exam: Present mucous membranes moist Neck Neck exam: Present normal inspection, full ROM and trachea midline Respiratory Respiratory exam: Present normal lung sounds bilaterally; Absent respiratory distress, wheezes, stridor, accessory muscle use or prolonged expiratory phase Cardiovascular Cardiovascular exam: Present regular rate and normal rhythm Abdominal Exam Abdominal exam: Present soft and tenderness; Absent distention, guarding, rebound or rigidity Abdominal tenderness: Present LLQ and suprapubic Extremities Exam Extremities exam: Absent edema Neurological Exam Neurological exam: Present alert, oriented X3, CN II-XII intact and normal gait; Absent motor sensory deficit Skin Skin exam: Present warm and dry; Absent diaphoresis or erythema Medical Decision Making Medical Records Medical records reviewed: Yes I reviewed the patient's medical records. Teofilo Inquiry Pt receiving controlled substance: No Teofilo was queried for this patient: No Vital Signs: 05/04/23 10:59 05/04/23 11:30 05/04/23 12:00 Temperature 98.1 F Temperature Source Oral Pulse Rate 80 60 Pulse Rate [Radial] 109 H Respiratory Rate 18 Blood Pressure 107/66 L 105/66 L Blood Pressure [Right Arm] 136/89 Blood Pressure Mean 79 77 Blood Pressure Mean [Right Arm] 104 Blood Pressure Source Blood Pressure Source [Right Arm] Automatic Cuff Blood Pressure Position Blood Pressure Position [Right Arm] Sitting 02 Sat by Pulse Oximetry 94 L 98 98 Oxygen Delivery Method Room Air Room Air Room Air 05/04/23 12:30 05/04/23 13:00 05/04/23 13:38 Temperature 98.7 F Temperature Source Oral Pulse Rate 64 54 L 75 Pulse Rate [Radial] Respiratory Rate 18 18 Blood Pressure 101/59 L 100/62 L 114/76 Blood Pressure [Right Arm] Blood Pressure Mean 76 73 Blood Pressure Mean [Right Arm] Blood Pressure Source Automatic Cuff Blood Pressure Source [Right Arm] Blood Pressure Position Supine Blood Pressure Position [Right Arm] 02 Sat by Pulse Oximetry 97 98 Oxygen Delivery Method Room Air Room Air Lab Data Lab Results 05/04/23 11:07: Urine Color Yellow, Urine Appearance Clear, Urine pH 6.0, Ur Specific [place] 1.020, Urine Protein Negative, Urine Glucose (UA) Negative, Urine Ketones Negative, Urine Blood Negative, Urine Nitrate Negative, Urine Bilirubin Negative, Urine Urobilinogen 0.2, Ur Leukocyte Esterase Trace, Urine RBC None, Urine WBC Occasional, Ur Squamous Epith Cells Occasional, Amorphous Sediment Trace, Urine Bacteria None 05/04/23 11:25: WBC 10.2, RBC 4.95, Hgb 12.1 L, Hct 37.2, MCV 75.1 L, MCH 24.5 L , MCHC 32.7, RDW 16.8, Plt Count 274, MPV 7.9, Neut % (Auto) 82.8 H, Lymph % (Auto) 11.7, [place] % (Auto) 4.3, Eos % (Auto) 1.0, Baso % (Auto) 0.2, Neut # (Auto) 8.4 H, Lymph # (Auto) 1.2, [place] # (Auto) 0.4, Eos # (Auto) 0.1, Baso # (Auto) 0.0, Sodium 135 L, Potassium 3.8, Chloride 109 H, Carbon Dioxide 20 L, Anion Gap 9.8, BUN 8, Creatinine 0.70, Estimated Creat Clear 130, Estimated GFR 100, Est GFR ( Amer) 121, Glucose 123 H, Calcium 8.5, Total Bilirubin 0.6, AST 32, ALT 20, Alkaline Phosphatase 100, Total Protein 7.7, Albumin 4.2, Globulin 3.5 H, Albumin/Globulin Ratio 1.2, HCG, Quant < 2 05/04/23 11:25 05/04/23 11:25 Orders (Tests/Meds): ED MEDICATIONS Discontinued Medications Generic Name Dose Route Start Last Admin Trade Name Freq PRN Reason Stop Dose Admin Acetaminophen 1,000 mg 05/04/23 12:01 05/04/23 12:05 Acetaminophen 500mg Tab PO 05/04/23 12:02 1,000 mg ONCE ONE Administration Ketorolac Tromethamine 15 mg 05/04/23 12:01 05/04/23 12:05 Ketorolac 30mg/Ml Vial IV 05/04/23 12:02 15 mg ONCE ONE Administration ORDERS Category Date Time Status CBC w/Auto Diff [Complete Blood Count Auto Diff] Stat Lab 05/04/23 11:25 Completed CMP [Comprehensive Metabolic Panel] Stat Lab 05/04/23 11:25 Completed HCG,Quantitative Stat Lab 05/04/23 11:25 Completed UA [Urinalysis and Microscopic] Stat Lab 05/04/23 11:07 Completed Medical Decision Narrative: 27-year-old female no relevant medical history presenting with lower abdominal pain. Patient states that she has had Depo shot and does not have periods. Has not had intercourse in over a year. States that she started having lower abdominal pain started yesterday that is cramping on the left lower quadrant and suprapubic. No vaginal discharge or bleeding. No diarrhea or constipation. No urinary symptoms. History was obtained via conversation with patient. On arrival, patient hemodynamically stable, alert, oriented x4, appropriate, GCS 15, moving all extremities spontaneously, pupils equal and reactive to light. Full physical exam performed and significant for abdominal tenderness left lower quadrant and suprapubic. No evidence of rebound, rigidity, or guarding. No flank tenderness. Differential includes , UTI, stone, PID, PUD, gastritis, enteritis, gastroenteritis, pancreatitis, SBO, colitis, diverticulitis, nephrolithiasis, UTI, aortic pathology, mesenteric ischemia, , cholecystitis, hepatitis, among others. Patient was given Toradol and Tylenol for symptomatic management and correction of underlying abnormalities. Workup independently interpreted and significant for nonactionable CBC or chemistry. negative. UA negative. See radiology read for full review of final results. On reevaluation, patient feeling a lot better, but concerned it may come back. Reassurance given and return precautions given. Because patient at baseline without signs or symptoms of clinical decompensation, deemed appropriate for discharge. Results were relayed to patient who voiced understanding and were agreeable to outpatient management and follow up. At the time of discharge the patient was hemodynamically stable, tolerating PO, and mobilizing appropriately. Critical Care Critical Care Time Critical Care Time: No
[2023-05-04 12:00] VITALS: BP 105/66; PULSE 60; O2SAT 98
[2023-05-04 12:01] LABS: Alanine Aminotransferase 20 U/L (12-78); Albumin Level 4.2 g/dl (3.5-5.0); Albumin/Globulin Ratio 1.2 (1.1-1.8); Alkaline Phosphatase 100 U/L (38-126); Anion Gap 9.8 mEq/L (5-15); Aspartate Amino Transferase 32 U/L (14-36); Bilirubin,Total 0.6 mg/dl (0.2-1.3); Blood Urea Nitrogen 8 mg/dl (7-17); Calcium 8.5 mg/dl (8.4-10.2); Carbon Dioxide 20 mmol/L (22.0-30.0); Chloride 109 mmol/L (98-107); Creatinine Clearance Estimated 130 mL/min (50-200); Estimated Glomerular Filt Rate 100 ml/min (>60); GFR (African American) 121 ML/MIN (>60); Globulin 3.5 g/dL (1.3-3.2); Glucose 123 mg/dl (74-100); Potassium 3.8 mmoL/L (3.5-5.1); Sodium 135 mmol/L (136-145); Total Protein,Serum 7.7 g/dl (6.3-8.2)
[2023-05-04] MEDS: ACETAMINOPHEN 500MG TAB 1000 MG PO (12:05)
[2023-05-04] MEDS: KETOROLAC 30MG/ML VIAL 15 MG IV (12:05)
[2023-05-04 12:25] LABS: HCG,Quantitative < 2 mIU/ml (0-5.42)
[2023-05-04 12:30] VITALS: BP 101/59; PULSE 64; O2SAT 97
--- NOTE | 2023-05-04 12:36 | PC.NURSE ---
Rounded on pt. No needs voiced at this time. Call light within reach.
[2023-05-04 13:00] VITALS: BP 100/62; PULSE 54; RESP 18; O2SAT 98
[2023-05-04 13:38] VITALS: BP 114/76; PULSE 75; RESP 18; TEMP 37.1; O2SAT 99
== END 2023-05-04 13:35 | disposition home or self-care (01) ==
PROVIDERS: Emergency Provider Emergency Medicine; PCP Nurse Practitioner Family
DX: R10.32 Left lower quadrant pain (principal); F17.200 Nicotine dependence, unspecified, uncomplicated
CPT/HCPCS: 80053; 81001; 84702; 85025; 96374; 99285

== ENCOUNTER 2024-05-29 07:58 | Outpatient (CLI) | payer OTHER, SELFPAY ==
--- NOTE | 2024-05-29 08:03 | US_ITS ---
FINAL REPORT CLINICAL HISTORY: gallstones COMPARISON: None FINDINGS: GALLBLADDER ULTRASOUND Technique: Ultrasound images of the right upper quadrant were obtained, specifically the gallbladder. Findings: Limited images of the liver parenchyma are normal in echogenicity. The gallbladder is well visualized and the wall appears at the upper limits of normal. A large gallstone is noted. There is a minimal amount of sludge. Common duct is normal. IMPRESSION: Gallstone and minimal sludge. Reviewed, Interpreted and Dictated by Cam Malin MD Transcribed by Ary Barrett Authenticated and [facility]
== END 2024-05-29 23:59 | disposition home or self-care (01) ==
LOC: RAD 08:00
PROVIDERS: PCP Nurse Practitioner; Visit Provider Nurse Practitioner Obstetrics & Gynecology
DX: K80.20 Calculus of gallbladder without cholecystitis without obstruction (principal)
CPT/HCPCS: 76705

== ENCOUNTER 2024-06-23 08:40 | Outpatient (CLI) | payer OTHER, SELFPAY ==
[2024-06-23 09:19] LABS: Urine Pregnancy, HCG Qual. Negative (Negative)
[2024-06-23 09:20] LABS: Basophils % 0.4 % (0.1-2.0); Eosinophils # 0.1 K/mm3 (0.0-0.4); Eosinophils % 1.8 % (0.1-12.0); Hematocrit 41.1 % (37.0-47.0); Hemoglobin 13.7 g/dL (12.2-16.2); Lymphocytes # 1.3 K/mm3 (0.7-4.5); Lymphocytes % 27.5 % (10-50); Mean Corpuscular HGB Conc 33.3 g/dL (31.8-35.4); Mean Corpuscular Hemoglobin 29.6 pg (27.0-31.2); Mean Corpuscular Volume 88.8 fl (81-99); Mean Platelet Volume 9.5 fl (7.4-10.4); Monocytes # 0.4 K/mm3 (0.1-1.0); Monocytes % 7.4 % (1.7-9.3); Neutrophils # 3.1 K/mm3 (1.8-7.8); Neutrophils % 62.7 % (37.0-80.0); Platelet Count 244 K/mm3 (142-424); Red Blood Count 4.63 M/mm3 (4.20-5.40); Red Cell Distribution Width 12.7 % (11.5-17.5); White Blood Count 4.9 K/mm3 (4.8-10.8)
[2024-06-23 09:54] LABS: Alanine Aminotransferase 15 U/L (12-78); Albumin Level 4.4 g/dl (3.5-5.0); Albumin/Globulin Ratio 1.5 (1.1-1.8); Anion Gap 6.8 mEq/L (5-15); Aspartate Amino Transferase 22 U/L (14-36); Blood Urea Nitrogen 12 mg/dl (7-17); Calcium 8.8 mg/dl (8.4-10.2); Carbon Dioxide 23 mmol/L (22.0-30.0); Chloride 111 mmol/L (98-107); Estimated Glomerular Filt Rate 75 ml/min (>60); GFR (African American) 90 ML/MIN (>60); Globulin 2.9 g/dL (1.3-3.2); Glucose 72 mg/dl (74-100); Potassium 3.8 mmoL/L (3.5-5.1); Sodium 137 mmol/L (136-145); Total Protein,Serum 7.3 g/dl (6.3-8.2)
[2024-06-23 11:45] LABS: Alkaline Phosphatase 86 U/L (38-126); Bilirubin,Total 0.4 mg/dl (0.2-1.3)
== END 2024-06-23 23:59 | disposition home or self-care (01) ==
LOC: PREOP 08:41
PROVIDERS: PCP Nurse Practitioner; Visit Provider Surgery
DX: K80.20 Calculus of gallbladder without cholecystitis without obstruction (principal)
CPT/HCPCS: 80053; 81025; 85025

== ENCOUNTER 2024-06-29 06:04 | Day surgery (SDC) | payer OTHER, SELFPAY ==
[2024-06-23 09:03] VITALS: BMI 29.7
[2024-06-29] VITALS (12 sets, daily range): BP systolic 110–156; BP diastolic 72–100; PULSE 51–113; RESP 16–28; TEMP 36.2–43; O2SAT 95–100
[2024-06-29] MEDS: 0.9 % SODIUM CHLORIDE 1000ML 1,000 ML 25 ML IV (06:21)
--- NOTE | 2024-06-29 06:50 | EXP.ANES.CKL ---
[facility] Disclaimer: The information contained in this section may have been updated after the patient was seen, as this information can be updated by other users. Medical History Insomnia Mild acid reflux Surgical History History of ankle surgery Family History Other Diabetes Hypertension Social History Smoking Status: Current every day smoker tobacco type: e-cigarettes alcohol intake: never substance use type: former substance user, marijuana, crack/cocaine and other current occupational status: employed Travel in the last 8 weeks: None Have you lived/traveled outside [place] in past 30 days?: No Contact w/someone who lives/traveled outside [place] past 30 days?: No Exposure to someone with infectious disease in past 14 days?: No Do you have a fever (greater than 100.4 F or 38 C)?: No Have you tested positive for COVID-19: No Exposed to someone with COVID-19 in past 14 days?: No Do you have a sore throat?: No Do you have a cough?: No Do you have any weakness?: No Do you have any diarrhea?: No Are you experiencing any unusual bleeding?: No Do you have any muscle aches/pain?: No Do you have any abdominal pain?: No Are you experiencing loss of taste or smell?: No [facility] Anesthesia Checklist Patient Identification Patient Identification: Arm Band and Family Structural Data Admitted From: Home Planned Operative Procedure/s: Lap Cholecystectomy and Lap Salpingectomy. Consent for Planned Operative Procedure(s) Verified: Yes Verified Documents: Surgical Consent and History and Physical NPO Status Verified Time NPO: 00:00 Additional verifications Patient : No Anesthesia Reactions: No Hx Blood Transfusions: No Blood Transfusion Reaction: No Cephalosporin Allergy: No Previous Colonoscopy: No Airway Assessment Mallampati Score:: Class I C-Spine Mobility Assessed: Yes TMJ Mobility Assessed: Yes Neurological Assessment Level of Consciousness: Awake, Alert, Appropriate and Follows Commands Hx Seizures: No Numbness or tingling in extremities: No Anesthesia Plan Anesthesia Risk discussed: Yes ASA Class: II Anesthesia Type: General Preoperative Comments Pre-Operative Comments: Handy. Symptomatic Cholelithiasis. Elective sterilization.
[2024-06-29] MEDS: CEFAZOLIN SODIUM 2 GM in 0.9 % SODIUM CHLORIDE 100 ML IV (07:45)
--- NOTE | 2024-06-29 08:49 | P.OP_ITS ---
Date of procedure: 06/29/24 Pre-op Diagnosis:: Desire for sterilization Post-op Diagnosis:: Desire for sterilization Procedure performed:: Laparoscopic bilateral salpingectomy Surgeon:: Germán Robles MD Cage/Vault Supervisor(s):: None QUALITY MANAGEMENT NURSE:: Ben Moncada Anesthesia: GETAmadeo Estimated blood loss (mL): 25 Clinical Note:: She is a 28-year-old lady who expressed a desire for sterilization. The risk and benefits of surgery were discussed with patient prior to surgery. She is also being seen by Dr. Ridley who will perform a laparoscopic cholecystectomy after my procedure. Operative findings:: She had an anteverted slightly bulky uterus. Ovaries and tubes appeared normal. The rest the pelvis appeared normal. Operative note:: She was taken to the operating room where general anesthesia was found be adequate. She was prepped and draped in normal sterile fashion in the semilithotomy position. A weighted speculum was placed in the vagina and the anterior lip of the cervix was grasped with a tenaculum. I then inserted a Ynes uterine manipulator into the cervical os. The balloon was then insufflated. I changed gloves and injected 10 cc of 0.5% ropivacaine around her umbilicus and made a small incision within the umbilicus. I inserted a Veress needle into the abdominal cavity. The peritoneal cavity was then insufflated with carbon dioxide gas to a pressure of 20 mmHg. I then inserted a 5 millimeter trocar under direct vision. I injected through and through the pubic hairline, made a small incision here and inserted an 8 mm trocar under direct vision. I identified the inferior epigastric artery on the left side, went lateral to these and injected through and through. I then placed a 5 mm trocar here under direct vision. The pelvis and upper abdomen were then inspected and the findings were as previously dictated. I grasped the right tube at the cornua and using harmonic scalpel on coagulation mode I cut through the tube. I then grasped the distal tube and using harmonic scalpel cut along the mesosalpinx. The tube was removed through 8 mm trocar site. This was similarly performed on the patient's left side. On careful inspection of the pelvis it was noted that there was a small perforation of the fundus of the uterus as a result of the uterine manipulator. I elected to place a 5 cm x 5 cm piece of Surgicel over the fundus of the uterus covering the perforation. Hemostasis was assured at the fundus. After assuring hemostasis the gas was let out of the abdomen and hemostasis was once again assured. The abdomen was then reinsufflated. The secondary trochars were removed under direct vision. The gas was let out her abdomen. The primary trocar was left in situ for Dr. Ridley to use during his laparoscopic cholecystectomy. The 8 mm trocar site was closed deeply with 2-0 Vicryl suture followed by subcuticular 4-0 Monocryl suture. The 5 mm trocar left lower quadrant site was closed with subcuticular 4-0 Monocryl. Sterile dressings were applied. Dr. Ridley will then perform a laparoscopic cholecystectomy and will dictate his portion of the case. Condition: stable Disposition: PACU Specimens:: Bilateral foot tubes Complications:: Uterine fundal perforation.
[2024-06-29] MEDS: LIDOCAINE 1% 20ML MDV 20 ML (09:24)
[2024-06-29] MEDS: ROPIVACAINE 0.5% 30ML VIAL 300 MG (09:24)
--- NOTE | 2024-06-29 10:36 | EXP.OP.NOTE ---
Date of procedure: 06/29/24 Pre-op Diagnosis:: Symptomatic cholelithiasis Post-op Diagnosis:: Chronic calculus cholecystitis Procedure performed:: Laparoscopic cholecystectomy Surgeon:: Kings Ridley MD METALIZING MACHINE OPERATOR:: Ben Moncada Anesthesia: GETA Estimated blood loss (mL): 15 Operative findings:: Serosal thickening Infundibular thickening Pericholecystic fat stranding Operative note:: Prior to laparoscopic cholecystectomy the patient underwent laparoscopic bilateral salpingo-oophorectomy (Dr. Robles). Please see separate operative report for detail. With infraumbilical [address] and patient under prior general anesthetic the abdomen was reprepped and draped in a sterile fashion. The abdomen was insufflated via the 5 mm infraumbilical trocar. Under direct visualization, a 12 mm trocar was placed in the subxiphoid position and 2 additional 5 mm trocars were placed in the right upper quadrant. The gallbladder was elevated up and over the liver margin. The tissue around the cystic duct was carefully dissected. 3 clips were placed proximally and the duct was transected with harmonic mireya. Harmonic mireya were then utilized to dissect the gallbladder away from the liver margin with careful attention to the control of the cystic artery. The gallbladder was placed in a retrieval bag and removed through the subxiphoid trocar site. The right upper quadrant was thoroughly irrigated. No active bleeding or bile leak was noted. Fascia at the subxiphoid trocar site was reapproximated utilizing 0 Ethibond. The remaining trocars were removed. All wounds were irrigated and skin was closed with 4-0 Monocryl in a subcuticular fashion. Steri-Strips were applied. The patient's anesthetic agents were reversed and extubation was completed prior to transfer to recovery in stable condition. Condition: stable Disposition: PACU Specimens:: Gallbladder and contents Complications:: No immediate
--- NOTE | 2024-06-29 10:49 | P.PNANES_ITS ---
[facility] Anesthesia Record Part I Anesthesia Record I Intake, IV Amount: 1,900 Hydration: Adequate Estimated blood loss (mL): 15 Urine output (mL): 0 Blood Products used (#): none Blood Pressure: 156/93 SaO2: 95 Pulse Rate: 113 Airway Patency: Patent Respiratory Rate: 26 Temperature: 97.2 F Patient is:: Stable Stable to PACU at:: 10:39
[2024-06-29] MEDS: ONDANSETRON 4MG/2ML VIAL 4 MG IV (11:01)
[2024-06-29] MEDS: MEPERIDINE 25MG/ML 1ML SYRINGE 25 MG IV (11:01)
[2024-06-29] MEDS: KETOROLAC 30MG/ML VIAL 30 MG IV (11:19)
--- NOTE | 2024-06-29 12:38 | SUR.OPER ---
0835- Dr Robles was done performing the laproscopic bilateral salpingectomy. Dr Robles left the room, Dr Ridley entered and was gowned and gloved by ase certified technician in room. 0837- second time out performed with all staff present in the room before laprascopic cholecystectomy took place. All staff present in room agreeed. Surgery proceeded. 0900- Dr Ridley gave verbal orders to remove all drapes and reprep the abdomen due to possible contamination of an instrument. Verbal orders repeated and correct. A count was performed by this RN and the ase certified technician in the room. Counts documented in intraoperative charting. All drapes removed from patient at this time, entire back table scrapped and cleaned. All new instruments brought in and set up. 0911- Abdomen was re-prepped in sterile fashion by this RN. prep dried for the required 3 minutes. 0914- Patient was drapped with new sterile drapes. a new count was performed at this time and documented. 0917- Surgery proceeded.
--- NOTE | 2024-06-30 07:18 | EXP.ANES.II ---
[facility] Anesthesia Record Part II Anesthesia Record Part II Discharge Time: 11:35 Destination: Surgical Day Care (OP Surgery) PACU nurse assessment reviewed?: Yes Patient Condition:: Good Anesthesia Complications:: None Swallowing reflex intact?: Yes Airway Patency: Patent Cyanosis?: No Blood Pressure: 147/87 SaO2: 98 Respiratory Rate: 17 Pulse Rate: 67 Temperature: 97.8 F Mental Status: Alert & Oriented Pain level:: 6 Nausea and/or vomitting:: None Intake, IV Amount: 0 Hydration: Adequate
[2024-06-30 07:19] VITALS: BP 147/87; PULSE 67; RESP 17; TEMP 36.6; O2SAT 98
== END 2024-06-29 12:15 | disposition home or self-care (01) ==
PROVIDERS: Nurse Practitioner Obstetrics & Gynecology; PCP Nurse Practitioner; Visit Provider Surgery
PROC: 0FT44ZZ Resection of Gallbladder, Percutaneous Endoscopic Approach (ICD-10-PCS; CPT 47562; principal; 2024-06-29 07:30)
PROC: (CPT 58661; 2024-06-29 07:30)
DX: Z30.2 Encounter for sterilization (principal); K80.10 Calculus of gallbladder with chronic cholecystitis without obstruction
CPT/HCPCS: 47562; 58661; 96374; J3490; J0690; J1100; J1885; J2175; J2250; J2405; J3010; J7030; J7120